=== PATIENT | male | born 1945 | race Caucasian/White ===

== ENCOUNTER 2023-12-16 23:34 | Inpatient (IN) | payer OTHER, SELFPAY ==
[2023-12-16 23:38] VITALS: BP 105/60; PULSE 108; RESP 18; TEMP 36.8; O2SAT 93; BMI 32.7
--- NOTE | 2023-12-16 23:40 | XRR_ITS ---
PROCEDURE INFORMATION: Exam: XR Left Hip Exam date and time: 12/17/2023 12:23 AM Age: 78 years old Clinical indication: Hip pain; Patient HX: Patient says he slipped on the ice and went down directly on left hip. Patient denies hitting head or losing conciousness in any way. Patient has refused CT of head and cxr. ; Additional info: Fall, fracture TECHNIQUE: Imaging protocol: Radiologic exam of the left hip. Views: 2 or 3 views hip with pelvis when performed. COMPARISON: No relevant prior studies available. FINDINGS: Bones/joints: Comminuted displaced and angulated intratrochanteric fracture of the left femur. Soft tissues: Unremarkable. XR/XR hip LT 2-3V wo/w pel* [id number] IMPRESSION: Comminuted displaced and angulated intratrochanteric fracture of the left femur.
--- NOTE | 2023-12-16 23:42 | ED_ITS ---
Documented by User: CATALINA Rawls 12/18/23 13:29 HPI - Extremity Injury (Lower) 2 General: Chief Complaint: ER Hold Stated Complaint: Fall; Left Hip Pain Time Seen by Provider: 12/16/23 23:38 History of Present Illness: 78-year-old male patient comes in today for complaints of fall with left hip injury. Patient about 1230 this afternoon walked out to the mailbox to get his mail when he slipped and fell injuring his left hip. Patient had 2 crawl back to his house due to not being able to bear weight to his left hip due to pain. Patient has external rotation of the hip and cannot lift knee off the pad. Patient does have sensation in the toes and strong pedal pulse. Patient denies injury to the head. Patient has a history of A-fib, hypertension, and diabetes mellitus type 2. Patient is on Xarelto. complaint: hip injury Onset (ago): hour(s) Injury: Left: hip Place: home Severity: severe Exacerbating factors: movement Context: fall Associated symptoms: Reports inability to bear weight Other symptoms: none Review of Systems 2 General: Reports: 10 or more systems reviewed and unremarkable except in HPI and below Const: Denies: fever(s) Card: Denies: chest pain Resp: Denies: dyspnea GI: Denies: nausea, vomiting, diarrhea or constipation : Denies: difficulty urinating Musc: Reports: joint pain (Left hip); Denies: neck pain or back pain Skin/Breast: Denies: rash Neuro: Denies: headache(s) PFS ED 2 PFSH: Medical History (Updated 12/17/23 @ 01:32 by Anibal Reynoso MD) History of hypertension Surgical History (Updated 12/17/23 @ 01:32 by Anibal Reynoso MD) History of appendectomy Family History (Updated 12/17/23 @ 01:33 by Anibal Reynoso MD) Mother Alzheimer's dementia Father Cancer Social History (Updated 12/17/23 @ 01:33 by Anibal Reynoso MD) Smoking and tobacco/nicotine status: never used tobacco/nicotine Alcohol intake: never Substance/Drug Use: never Physical Exam 2 Const: COMMON NORMALS: alert ORIENTATION/CONSCIOUSNESS: Yes oriented to person and Yes oriented to place HENMT: COMMON NORMALS: normocephalic and atraumatic HEAD & SCALP: n ormocephalic and atraumatic THROAT: posterior oropharynx normal Eye: GENERAL EYE: appearance normal, both eyes and all related structures Neck/C-Spine: COMMON NORMALS: full ROM CERVICAL SPINE: No Cervical spine tenderness and No Paracervical muscle tenderness Chest: COMMONS NORMALS: normal inspection of the chest and normal palpation of entire chest wall Resp: COMMON NORMALS: normal respiratory effort and clear to auscultation bilaterally AUSCULTATION: clear to auscultation bilaterally Cardio: COMMON NORMALS: regular rate and regular rhythm RATE: regular rate RHYTHM: regular rhythm GI: COMMON NORMALS: Soft to palpation AUSCULTATION: Yes normoactive bowel sounds PALPATION: Yes Soft to palpation and No Tenderness to palpation present (GI) Back/Pelvis: THORACIC SPINE/UPPER BACK: No thoracic spinal tenderness L UMBAR SPINE/LOWER BACK: No lumbar spinal tenderness Extremity: LEFT LOWER EXTREMITY: Yes hip joint (Lateral tenderness, external rotation.) Neuro: TOM COMA SCALE: document GCS findings [place] coma scale eye opening: Spontaneous Tom coma scale verbal response: Orientated Tom coma scale motor response: Obey commands [place] coma scale total score: 15 S ENSORIUM/ORIENTATION: Yes alert, Yes oriented to person and Yes oriented to place Psych: COMMON NORMALS: mental status grossly normal Skin: COMMON NORMALS: turgor normal GENERAL SKIN EXAM: turgor normal Course 2 Vital Signs: Vital signs: Vital Signs Temperature 98.5 F 12/18/23 11:15 Pulse Rate 106 H 12/18/23 11:15 Respiratory Rate 14 12/18/23 12:27 Blood Pressure 120/55 12/18/23 11:15 Pulse Oximetry 90 12/18/23 12:27 Oxygen Delivery Me thod Room Air 12/18/23 11:15 Oxygen Flow Rate 3 12/18/23 10:39 MDM - Extremity Injury (Lower) Medical Decision Making 78-year-old male patient comes in today for injury to the left hip. Patient slipped and fell this afternoon around 1230 and was not able to get up off the ground. Patient was able to crawl back to his house and was unable to bear any weight to the left hip. Patient then was able to get a hold of his son and EMS was called around 7:00 but had difficulty getting to patient's residence due to the bad road conditions. Exam noted external rotation of the left hip. Distal pulses and sensation were intact. Differential diagnosis includes dislocation, fracture, contusion, rhabdomyolysis. Lab Data 12/16/23 00:42 12/17/23 01:00 Radiology Impressions Hip/Pelvis X-Ray 12/16/23 23:40 IMPRESSION: Comminuted displaced and angulated intratrochanteric fracture of the left femur. Chest X-Ray 12/17/23 01:27 IMPRESSION: No focal consolidation. Laboratory Results WBC 8.22 10^3/uL (3.29-11.43) 12/16/23 00:42 RBC 4.35 10^6/uL (3.85-5.65) 12/16/23 00:42 Hgb 13.20 g/dL (11.27-16.99) 12/16/23 00:42 Hct 43.3 % (37-53) 12/16/23 00:42 MCV 99.5 fl (82-101) 12/16/23 00:42 MCH 30.3 pg (27-33) 12/16/23 00:42 MCHC 30.5 g/dL (30-55) 12/16/23 00:42 RDW 13.2 % (12.1-15.1) 12/16/23 00:42 Plt Count 152 10^3/cmm (157-399) L 12/16/23 00:42 MPV 11.6 fL (7.4-10.4) H 12/16/23 00:42 Neut % (Auto) 79.3 % 12/16/23 00:42 Lymph % (Auto) 8.6 % 12/16/23 00:42 Evangeline % (Auto) 11.6 % 12/16/23 00:42 Eos % (Auto) 0.0 % 12/16/23 00:42 Baso % (Auto) 0.1 % 12/16/23 00:42 Neut # (Auto) 6.52 10^3/uL (1.8-7.7) 12/16/23 00:42 Lymph # (Auto) 0.7 10^3/uL (0.8-4.8) L 12/16/23 00:42 Evangeline # (Auto) 1.0 10^3/uL (0.2-0.9) H 12/16/23 00:42 Eos # (Auto) 0.0 10^3/uL (0.0-0.8) 12/16/23 00:42 Baso # (Auto) 0.0 10^3/uL (0.0-0.1) 12/16/23 00:42 Nucleated RBC % (auto) 0 % 12/16/23 00:42 Nucleated RBCs # 0.0 /100WBC 12/16/23 00:42 PT 14.20 SECONDS (12.1-14.9) 12/17/23 01:00 INR 1.06 (0.8-1.2) 12/17/23 01:00 Sodium 135 mmol/L (136-145) L 12/17/23 01:00 Potassium 4.6 mmol/L (3.5-5.1) 12/17/23 01:00 Chloride 97 mmol/L (98-107) L 12/17/23 01:00 Carbon Dioxide 25 mmol/L (22-29) 12/17/23 01:00 Anion Gap 17.6 (5-19) 12/17/23 01:00 BUN 23 mg/dL (8-23) 12/17/23 01:00 Creatinine 1.0 mg/dL (0.7-1.2) 12/17/23 01:00 GFR Calculation Not Reportable 12/17/23 01:00 Glucose 333 mg/dL (65-115) H 12/17/23 01:00 POC Glucose 299 mg/dL (70-110) H 12/17/23 10:59 Estimat Average Glucose 272 12/17/23 02:46 Hemoglobin A1c 11.1 % (4.0-6.0) H 12/17/23 02:46 Calculated Osmolality 297 mOsm/kg (285-295) H 12/17/23 01:00 Lactic Acid 1.5 mmol/L (0.5-2.2) 12/17/23 02:46 Calcium 9.6 mg/dL (8.5-10.5) 12/17/23 01:00 Phosphorus 2.5 mg/dL (2.5-4.5) 12/17/23 01:00 Magnesium 1.9 mg/dL (1.7-2.3) 12/17/23 01:00 Total Bilirubin 1.9 mg/dL (0.15-1.2) H 12/17/23 01:00 AST 32 U/L (0-40) 12/17/23 01:00 ALT 19 U/L (0-41) 12/17/23 01:00 Alkaline Phosphatase 70 U/L (40-130) 12/17/23 01:00 Creatine Kinase 497 U/L (39-308) H* 12/17/23 01:00 Troponin T Baseline 55 ng/L (0-15) H 12/17/23 01:00 Troponin T 120 Minute 46.20 ng/L (0-15) H 12/17/23 02:46 Delta Troponin T -8.80 ABS# (0-10) L 12/17/23 02:46 Troponin T Hi Sens 6Hr 38.77 ng/L (0-15) H 12/17/23 07:00 Troponin T Hi Sens 6Hr Delta -16.23 ng/L (0-12) L 12/17/23 07:00 NT-Pro-B Natriuret Pep 1868 pg/mL (0-450) H 12/17/23 01:00 Total Protein 7.3 g/dL (6.6-8.7) 12/17/23 01:00 Albumin 4.0 g/dL (3.5-5.2) 12/17/23 01:00 Globulin 3.3 g/dL (1.3-4.6) 12/17/23 01:00 Triglycerides 96 mg/dL (0-150) 12/17/23 01:00 Cholesterol 183 mg/dL (0-200) 12/17/23 01:00 LDL Cholesterol, Calc 121 mg/dL (50-129) 12/17/23 01:00 HDL Cholesterol 43 mg/dL (60-100) L 12/17/23 01:00 LDL/HDL Ratio 2.81 RATIO (0.00-3.22) 12/17/23 01:00 Cholesterol/HDL Ratio 4.26 mg/dL (1.0-5.00) 12/17/23 01:00 Procalcitonin 0.34 ng/mL (0-0.5) 12/17/23 01:00 TSH 1.65 uIU/mL (0.27-4.20) 12/17/23 01:00 Urine Color Yellow (Yellow) 12/17/23 02:22 Urine Appearance Clear (CLEAR) 12/17/23 02:22 Urine pH 5 (5-7) 12/17/23 02:22 Ur Specific [place] 1.020 (1.005-1.030) 12/17/23 02:22 Urine Protein Neg (Negative) 12/17/23 02:22 Urine Glucose (UA) 4+ (Normal) H 12/17/23 02:22 Urine Ketones 2+ (Negative) H 12/17/23 02:22 Urine Blood 2+ (Negative) H 12/17/23 02:22 Urine Nitrate Negative (Negative) 12/17/23 02:22 Urine Bilirubin Neg (Negative) 12/17/23 02:22 Urine Urobilinogen Neg mg/dL (Negative) 12/17/23 02:22 Ur Leukocyte Esterase Negative (Negative) 12/17/23 02:22 Urine RBC 5-10 /hpf (0-2) H 12/17/23 02:22 Urine WBC None /hpf (0-5) 12/17/23 02:22 Ur Squamous Epith Cells None /hpf (0-5) 12/17/23 02:22 Amorphous Sediment Not Reportable 12/17/23 02:22 Urine Bacteria Trace /hpf (NONE) 12/17/23 02:22 Urine Mucus Trace /hpf 12/17/23 02:22 EKG Data EKG 1: I personally reviewed and interpreted this EKG as follows: EKG interpretation date: 12/17/23 EKG interpretation time: 00:01 Prior EKG tracings: not available for review Interpretation: EKG shows atrial fib with a irregular rate at [address] elevation or ectopy is noted. No prior exam was available for immediate comparison. Computer generated interpretation: Atrial fibrillation, pattern consistent with pulmonary disease, possible right ventricular conduction delay, inferior myocardial infarction of indeterminate age, abnormal EKG, unconfirmed report. Discharge Plan Discharge Patient Disposition: Admitted As Inpatient Admit Provider: Anibal Reynoso Clinical Impression: Anticoagulation adequate Closed fracture of left hip Qualifiers: Encounter type: initial encounter Qualified Code(s): S72.002A - Fracture of unspecified part of neck of left femur, initial encounter for closed fracture Fall Qualifiers: Encounter type: initial encounter Qualified Code(s): W19.XXXA - Unspecified fall, initial encounter Atrial fibrillation Qualifiers: Atrial fibrillation type: unspecified Qualified Code(s): I48.91 - Unspecified atrial fibrillation Diabetes Qualifiers: Diabetes mellitus type: type 2 Diabetes mellitus watermaster insulin use: without long-term use Diabetes mellitus complication status: without complication Q ualified Code(s): E11.9 - Type 2 diabetes mellitus without complications Condition: Stable Coding Level of Care Code ED Flanging Machine Operator for Chg Fwd Documented by User: Zeke Fritz DO 12/17/23 19:04 HPI - Extremity Injury (Lower) 2 General: Chief Complaint: ER Hold Stated Complaint: Fall; Left Hip Pain Time Seen by Provider: 12/16/23 23:38 [facility] ED 2 PFSH: Medical History (Updated 12/17/23 @ 01:32 by Anibal Reynoso MD) History of hypertension Surgical History (Updated 12/17/23 @ 01:32 by Anibal Reynoso MD) History of appendectomy Family History (Updated 12/17/23 @ 01:33 by Anibal Reynoso MD) Mother Alzheimer's dementia Father Cancer Social History (Updated 12/17/23 @ 01:33 by Anibal Reynoso MD) Smoking and tobacco/nicotine status: never used tobacco/nicotine Alcohol intake: never Substance/Drug Use: never Physical Exam 2 Neuro: TOM COMA SCALE: document GCS findings [place] coma scale total score: 15 Course 2 Vital Signs: Vital signs: Vital Signs Temperature 98.5 F 12/18/23 11:15 Pulse Rate 106 H 12/18/23 11:15 Respiratory Rate 14 12/18/23 12:27 Blood Pressure 120/55 12/18/23 11:15 Pulse Oximetry 90 12/18/23 12:27 Oxygen Delivery Me thod Room Air 12/18/23 11:15 Oxygen Flow Rate 3 12/18/23 10:39 MDM - Extremity Injury (Lower) Medical Decision Making 78-year-old male patient comes in today for injury to the left hip. Patient slipped and fell this afternoon around 1230 and was not able to get up off the ground. Patient was able to crawl back to his house and was unable to bear any weight to the left hip. Patient then was able to get a hold of his son and EMS was called around 7:00 but had difficulty getting to patient's residence due to the bad road conditions. Exam noted external rotation of the left hip. Distal pulses and sensation were intact. Differential diagnosis includes dislocation, fracture, contusion, rhabdomyolysis. Patient refused his chest x-ray and head CT and was adamant that he was not getting them because there were nothing wrong with those areas. Consulted who agreed to accept the patient in consult and wanted patient manage the hospitalist he will see them in the morning. Dr. Mendoza was consulted who agreed to place the patient on [facility] with telemetry for further evaluation and treatment. Lab Data 12/16/23 00:42 12/17/23 01:00 Radiology Impressions Hip/Pelvis X-Ray 12/16/23 23:40 IMPRESSION: Comminuted displaced and angulated intratrochanteric fracture of the left femur. Chest X-Ray 12/17/23 01:27 IMPRESSION: No focal consolidation. Laboratory Results WBC 8.22 10^3/uL (3.29-11.43) 12/16/23 00:42 RBC 4.35 10^6/uL (3.85-5.65) 12/16/23 00:42 Hgb 13.20 g/dL (11.27-16.99) 12/16/23 00:42 Hct 43.3 % (37-53) 12/16/23 00:42 MCV 99.5 fl (82-101) 12/16/23 00:42 MCH 30.3 pg (27-33) 12/16/23 00:42 MCHC 30.5 g/dL (30-55) 12/16/23 00:42 RDW 13.2 % (12.1-15.1) 12/16/23 00:42 Plt Count 152 10^3/cmm (157-399) L 12/16/23 00:42 MPV 11.6 fL (7.4-10.4) H 12/16/23 00:42 Neut % (Auto) 79.3 % 12/16/23 00:42 Lymph % (Auto) 8.6 % 12/16/23 00:42 Evangeline % (Auto) 11.6 % 12/16/23 00:42 Eos % (Auto) 0.0 % 12/16/23 00:42 Baso % (Auto) 0.1 % 12/16/23 00:42 Neut # (Auto) 6.52 10^3/uL (1.8-7.7) 12/16/23 00:42 Lymph # (Auto) 0.7 10^3/uL (0.8-4.8) L 12/16/23 00:42 Evangeline # (Auto) 1.0 10^3/uL (0.2-0.9) H 12/16/23 00:42 Eos # (Auto) 0.0 10^3/uL (0.0-0.8) 12/16/23 00:42 Baso # (Auto) 0.0 10^3/uL (0.0-0.1) 12/16/23 00:42 Nucleated RBC % (auto) 0 % 12/16/23 00:42 Nucleated RBCs # 0.0 /100WBC 12/16/23 00:42 PT 14.20 SECONDS (12.1-14.9) 12/17/23 01:00 INR 1.06 (0.8-1.2) 12/17/23 01:00 Sodium 135 mmol/L (136-145) L 12/17/23 01:00 Potassium 4.6 mmol/L (3.5-5.1) 12/17/23 01:00 Chloride 97 mmol/L (98-107) L 12/17/23 01:00 Carbon Dioxide 25 mmol/L (22-29) 12/17/23 01:00 Anion Gap 17.6 (5-19) 12/17/23 01:00 BUN 23 mg/dL (8-23) 12/17/23 01:00 Creatinine 1.0 mg/dL (0.7-1.2) 12/17/23 01:00 GFR Calculation Not Reportable 12/17/23 01:00 Glucose 333 mg/dL (65-115) H 12/17/23 01:00 POC Glucose 299 mg/dL (70-110) H 12/17/23 10:59 Estimat Average Glucose 272 12/17/23 02:46 Hemoglobin A1c 11.1 % (4.0-6.0) H 12/17/23 02:46 Calculated Osmolality 297 mOsm/kg (285-295) H 12/17/23 01:00 Lactic Acid 1.5 mmol/L (0.5-2.2) 12/17/23 02:46 Calcium 9.6 mg/dL (8.5-10.5) 12/17/23 01:00 Phosphorus 2.5 mg/dL (2.5-4.5) 12/17/23 01:00 Magnesium 1.9 mg/dL (1.7-2.3) 12/17/23 01:00 Total Bilirubin 1.9 mg/dL (0.15-1.2) H 12/17/23 01:00 AST 32 U/L (0-40) 12/17/23 01:00 ALT 19 U/L (0-41) 12/17/23 01:00 Alkaline Phosphatase 70 U/L (40-130) 12/17/23 01:00 Creatine Kinase 497 U/L (39-308) H* 12/17/23 01:00 Troponin T Baseline 55 ng/L (0-15) H 12/17/23 01:00 Troponin T 120 Minute 46.20 ng/L (0-15) H 12/17/23 02:46 Delta Troponin T -8.80 ABS# (0-10) L 12/17/23 02:46 Troponin T Hi Sens 6Hr 38.77 ng/L (0-15) H 12/17/23 07:00 Troponin T Hi Sens 6Hr Delta -16.23 ng/L (0-12) L 12/17/23 07:00 NT-Pro-B Natriuret Pep 1868 pg/mL (0-450) H 12/17/23 01:00 Total Protein 7.3 g/dL (6.6-8.7) 12/17/23 01:00 Albumin 4.0 g/dL (3.5-5.2) 12/17/23 01:00 Globulin 3.3 g/dL (1.3-4.6) 12/17/23 01:00 Triglycerides 96 mg/dL (0-150) 12/17/23 01:00 Cholesterol 183 mg/dL (0-200) 12/17/23 01:00 LDL Cholesterol, Calc 121 mg/dL (50-129) 12/17/23 01:00 HDL Cholesterol 43 mg/dL (60-100) L 12/17/23 01:00 LDL/HDL Ratio 2.81 RATIO (0.00-3.22) 12/17/23 01:00 Cholesterol/HDL Ratio 4.26 mg/dL (1.0-5.00) 12/17/23 01:00 Procalcitonin 0.34 ng/mL (0-0.5) 12/17/23 01:00 TSH 1.65 uIU/mL (0.27-4.20) 12/17/23 01:00 Urine Color Yellow (Yellow) 12/17/23 02:22 Urine Appearance Clear (CLEAR) 12/17/23 02:22 Urine pH 5 (5-7) 12/17/23 02:22 Ur Specific [place] 1.020 (1.005-1.030) 12/17/23 02:22 Urine Protein Neg (Negative) 12/17/23 02:22 Urine Glucose (UA) 4+ (Normal) H 12/17/23 02:22 Urine Ketones 2+ (Negative) H 12/17/23 02:22 Urine Blood 2+ (Negative) H 12/17/23 02:22 Urine Nitrate Negative (Negative) 12/17/23 02:22 Urine Bilirubin Neg (Negative) 12/17/23 02:22 Urine Urobilinogen Neg mg/dL (Negative) 12/17/23 02:22 Ur Leukocyte Esterase Negative (Negative) 12/17/23 02:22 Urine RBC 5-10 /hpf (0-2) H 12/17/23 02:22 Urine WBC None /hpf (0-5) 12/17/23 02:22 Ur Squamous Epith Cells None /hpf (0-5) 12/17/23 02:22 Amorphous Sediment Not Reportable 12/17/23 02:22 Urine Bacteria Trace /hpf (NONE) 12/17/23 02:22 Urine Mucus Trace /hpf 12/17/23 02:22 All radiology interpretation(s) finalized by discharge Discharge Plan Discharge Patient Disposition: Admitted As Inpatient Admit Provider: Anibal Reynoso Clinical Impression: Anticoagulation adequate Closed fracture of left hip Qualifiers: Encounter type: initial encounter Qualified Code(s): S72.002A - Fracture of unspecified part of neck of left femur, initial encounter for closed fracture Fall Qualifiers: Encounter type: initial encounter Qualified Code(s): W19.XXXA - Unspecified fall, initial encounter Atrial fibrillation Qualifiers: Atrial fibrillation type: unspecified Qualified Code(s): I48.91 - Unspecified atrial fibrillation Diabetes Qualifiers: Diabetes mellitus type: type 2 Diabetes mellitus long-term insulin use: without long-term use Diabetes mellitus complication status: without complication Q ualified Code(s): E11.9 - Type 2 diabetes mellitus without complications Condition: Stable Coding Level of Care Code ED Flanging Machine Operator for Doretha Huggins
--- NOTE | 2023-12-16 23:52 | ECG_ITS ---
[facility] Test Date: 2023-12-16 Pat Name: Carl Shore Department: Room: Gender: Male Procurement Engineer: : 1945 Requested By: Delta Moon Order Number: [id number] Jeannie MD: Darlene Grubbs M.D. Measurements Intervals [place] Rate: 99 P: 0 VT: 0 QRS: -46 QRSD: 89 T: -22 QT: 332 QTc: 427 Interpretive Statements ATRIAL FIBRILLATION PATTERN CONSISTENT WITH PULMONARY DISEASE POSSIBLE RIGHT VENTRICULAR CONDUCTION DELAY [RSR (QR) IN V1/V2] INFERIOR MYOCARDIAL INFARCTION , OF INDETERMINATE AGE [40+ ms Q WAVE AND/OR ST/T ABNORMALITY IN II/aVF] No previous ECG available for comparison Electronically Signed On 12-17-2023 19:47:49 REGIONAL CONSTRUCTION MANAGER by Darlene Grubbs M.D. [id number] f
[2023-12-17] VITALS (46 sets, daily range): BP systolic 94–143; BP diastolic 49–81; PULSE 90–118; RESP 13–32; TEMP 36.6–37.4; O2SAT 88–97
[2023-12-17 00:47] LABS: Basophils % 0.1 %; Hematocrit 43.3 % (37-53); Lymphocytes # 0.7 10^3/uL (0.8-4.8); Lymphocytes % 8.6 %; Mean Corpuscular HGB Conc 30.5 g/dL (30-55); Mean Corpuscular Hemoglobin 30.3 pg (27-33); Mean Corpuscular Volume 99.5 fl (82-101); Mean Platelet Volume 11.6 fL (7.4-10.4); Monocytes % 11.6 %; Neutrophils # 6.52 10^3/uL (1.8-7.7); Neutrophils % 79.3 %; Nucleated Red Blood Cells % 0 %; Platelet Count 152 10^3/cmm (157-399); Red Blood Count 4.35 10^6/uL (3.85-5.65); Red Cell Distribution Width 13.2 % (12.1-15.1); White Blood Count 8.22 10^3/uL (3.29-11.43)
[2023-12-17 01:15] LABS: INR 1.06 (0.8-1.2)
[2023-12-17 01:20] LABS: Alanine Aminotransferase 19 U/L (0-41); Alkaline Phosphatase 70 U/L (40-130); Anion Gap 17.6 (5-19); Aspartate Amino Transferase 32 U/L (0-40); Blood Urea Nitrogen 23 mg/dL (8-23); Calcium 9.6 mg/dL (8.5-10.5); Carbon Dioxide 25 mmol/L (22-29); Chloride 97 mmol/L (98-107); Globulin 3.3 g/dL (1.3-4.6); Glucose 333 mg/dL (65-115); Osmolality Calculated 297 mOsm/kg (285-295); Potassium 4.6 mmol/L (3.5-5.1); Sodium 135 mmol/L (136-145); Total Bilirubin 1.9 mg/dL (0.15-1.2); Total Protein 7.3 g/dL (6.6-8.7)
--- NOTE | 2023-12-17 01:27 | XRR_ITS ---
PROCEDURE INFORMATION: Exam: XR Chest Exam date and time: 12/17/2023 1:53 AM Age: 78 years old Clinical indication: Injury or trauma; Fall; Blunt trauma (contusions or hematomas); Patient HX: Slipped on ice, hip FX TECHNIQUE: Imaging protocol: Radiologic exam of the chest. Views: 1 view. COMPARISON: No relevant prior studies available. FINDINGS: Lungs: No focal consolidation. Pleural spaces: Unremarkable. No pleural effusion. No pneumothorax. Heart/Mediastinum: Unremarkable. No cardiomegaly. Bones/joints: Prior median sternotomy and CABG. XR/XR chest 1V portable [id number] IMPRESSION: No focal consolidation.
--- NOTE | 2023-12-17 01:27 | ECG_ITS ---
[facility] Test Date: 2023-12-17 Pat Name: Carl Shore Department: Room: Gender: Male Advisor To Command In Combat: : 1945 Requested By: Anibal Reynoso Order Number: [id number] Jeannie MD: Darlene Grubbs M.D. Measurements Intervals [place] Rate: 98 P: 0 OK: 0 QRS: -50 QRSD: 93 T: -31 QT: 336 QTc: 430 Interpretive Statements ATRIAL FIBRILLATION WITH ABERRANT CONDUCTION OR VENTRICULAR PREMATURE COMPLEXES PATTERN CONSISTENT WITH PULMONARY DISEASE INCOMPLETE RIGHT BUNDLE BRANCH BLOCK [90+ ms QRS DURATION, TERMINAL R IN V1/V2, 40+ ms S IN I/aVL/V4/V5/V6] INFERIOR MYOCARDIAL INFARCTION , OF INDETERMINATE AGE [40+ ms Q WAVE AND/OR ST/T ABNORMALITY IN II/aVF] Compared to ECG 12/16/2023 23:52:09 Ventricular premature complex(es) now present Aberrant conduction of supraventricular beat(s) now present Incomplete right bundle-branch block now present Myocardial infarct finding still present Electronically Signed On 12-17-2023 19:49:09 TRACER POWDER BLENDER by Darlene Grubbs M.D. [id number]
--- NOTE | 2023-12-17 01:30 | PM.HP ---
Providers/Chief Complaint Primary Care Provider: Tamar Jeff MD Chief Complaint: Fall; Left Hip Pain History of Present Illness Carl Shore is a 78 year old male with a past medical history of COPD, on Xarelto type 2 diabetes mellitus, hypertension, who presents to [facility] for a fall, patient tells me that this morning, he was going out to set the garbage out, when he slipped and fell on the last step, and fell on his left hip, no significant head trauma, no neck trauma no loss of consciousness, he immediately had left hip pain, he was able to crawl back in the home, and crawled back to the side of the bed, he was on the floor for about 7 hours, he called his son, who rushed to his home but unfortunately got stuck in a ditch, eventually patient was able to call ambulance who came out to his home, in the emergency room he is found to have a left hip fracture, he declined CT of the head, no headache, no blurry vision, no nausea, vomiting, no back pain, no neck pain, no knee pain, no leg pain, no foot pain or any further imaging as he tells us the only thing that is hurting him is his left hip, he does confirm that he took Xarelto this morning Review of Systems Card: Denies: chest pain Resp: Denies: dyspnea Neuro: Denies: headache(s) Medications/Allergies Allergies Allergy/AdvReac Type Severity Reaction Status Date / Time No Known Allergies Allergy Verified 12/16/23 23:42 PFSH Acute PFSH: Medical History (Updated 12/17/23 @ 01:32 by Anibal Reynoso MD) History of hypertension Surgical History (Updated 12/17/23 @ 01:32 by Anibal Reynoso MD) History of appendectomy Family History (Updated 12/17/23 @ 01:33 by Anibal Reynoso MD) Mother Alzheimer's dementia Father Cancer Social History (Updated 12/17/23 @ 01:33 by Anibal Reynoso MD) Smoking and tobacco/nicotine status: never used tobacco/nicotine Alcohol intake: never Substance/Drug Use: never Vitals/I&O/Wt Last Vital Signs Temp 98.2 F 12/16/23 23:38 Pulse 118 H 12/17/23 01:24 Resp 17 12/17/23 01:24 BP 105/68 12/17/23 01:24 Pulse Ox 91 12/17/23 01:24 O2 Del Method Room Air 12/17/23 01:24 Weight last 48 hrs Weight 103.419 kg Physical Exam Const: COMMON NORMALS: no acute distress and patient oriented x3 HENMT: COMMON NORMALS: normocephalic HEAD & SCALP: normocephalic Eye: COMMON NORMALS: Equal, round and reactive pupils present and EOMs intact bilaterally Neck/C-Spine: COMMON NORMALS: no JVD CERVICAL SPINE: No Cervical spine tenderness Lymph: LYMPHATIC: no lymphadenopathy noted Resp: COMMON NORMALS: normal respiratory effort, No retractions, No use of accessory muscles and clear to auscultation bilaterally AUSCULTATION: clear to auscultation bilaterally Cardio: COMMON NORMALS: no JVD, regular rate, regular rhythm, S1 normal heart sound present and S2 normal heart sound present RATE: tachycardic RHYTHM: abnormal rhythm irregularly irregular HEART SOUNDS: S1 normal heart sound present and S2 normal heart sound present GI: COMMON NORMALS: Normal to inspection, nondistended, normoactive bowel sounds present, Soft to palpation and non-tender PALPATION: Yes No hepatosplenomegaly present Extremity: COMMON NORMALS: no calf tenderness and no pedal edema Neuro: COMMON NORMALS: patient oriented x3, CN's II-XII intact bilaterally and moves all extremities Psych: COMMON NORMALS: mental status grossly normal Data 12/16/23 00:42 12/17/23 01:00 A&P Assessment and plan (1) Atrial fibrillation: Qualifiers: Atrial fibrillation type: unspecified Qualified Code(s): I48.91 - Unspecified atrial fibrillation (2) Diabetes: Qualifiers: Diabetes mellitus complication status: without complication Diabetes mellitus long term care social worker insulin use: without snf use Diabetes mellitus type: type 2 Qualified Code(s): E11.9 - Type 2 diabetes mellitus without complications (3) Closed fracture of left hip: Qualifiers: Encounter type: initial encounter Qualified Code(s): S72.002A - Fracture of unspecified part of neck of left femur, initial encounter for closed fracture Plan Fall, left hip fracture -N.p.o. -Dilaudid for pain control -Zofran for nausea -Dr. Cochran has been consulted from ER -Patient's last dose of Xarelto was the morning of 12/16/2023 -Full code -SCDs for DVT prophylaxis Atrial fibrillation -Currently heart rates 110, atrial fibrillation -Patient is not sure what medications he takes at home -Will consider drip such as Cardizem based on clinical progress -Holding anticoagulation Type II diet mellitus, low-dose sliding scale Attestations Medical Necessity Statement*: Patient requires hospitalization, inpatient, greater than 2 midnights for fall, left hip fracture Diagnoses Atrial fibrillation I48.91 Atrial fibrillation type: unspecified Diabetes E11.9 Diabetes mellitus complication status: without complication Diabetes mellitus snf insulin use: without long term care social worker use Diabetes mellitus type: type 2 Closed fracture of left hip S72.002A Encounter type: initial encounter
[2023-12-17 01:40] LABS: Creatine Phosphokinase 497 U/L (39-308)
[2023-12-17 01:52] LABS: Troponin(5th) Baseline 55 ng/L (0-15)
[2023-12-17 01:59] LABS: NT Pro B Type Natriuretic Pept 1868 pg/mL (0-450); Procalcitonin 0.34 ng/mL (0-0.5); Thyroid Stimulating Hormone 1.65 uIU/mL (0.27-4.20)
[2023-12-17] MEDS: HYDROmorphone 1 mg/mL INJ 1 mL 0.5 MG IVP ×3 (02:02→18:29)
[2023-12-17] MEDS: pantoprazole 40 mg SDV IVP (02:03)
[2023-12-17] MEDS: sodium chloride 0.9% 1,000 ML 75 ML IV ×2 (02:03→13:18)
[2023-12-17 02:10] LABS: Chol HDL Ratio 4.26 mg/dL (1.0-5.00); Cholesterol 183 mg/dL (0-200); HDL Cholesterol 43 mg/dL (60-100); LDL Cholesterol Calculated 121 mg/dL (50-129); LDL HDL Ratio 2.81 RATIO (0.00-3.22); Magnesium 1.9 mg/dL (1.7-2.3); Phosphorus 2.5 mg/dL (2.5-4.5); Triglycerides 96 mg/dL (0-150)
[2023-12-17 02:33] LABS: Blood Urine 2+ (Negative); Glucose Urine UA 4+ (Normal); Ketones Urine 2+ (Negative); Protein Urine Neg (Negative); Urine Appearance Clear (CLEAR); Urine Color Yellow (Yellow); pH Urine 5 (5-7)
[2023-12-17 02:34] LABS: Add Urine Culture? No; Add Urine Microscopic? YES; Bacteria Urine TRACE /hpf; Bilirubin Urine Neg (Negative); Leukocyte Esterase Urine Negative (Negative); Mucus Urine TRACE /hpf; Nitrate Urine Negative (Negative); Urobilinogen Urine Neg (Negative)
[2023-12-17 03:02] LABS: Estmated Average Glucose 272; Hemoglobin A1C 11.1 % (4.0-6.0)
[2023-12-17 03:10] LABS: Lactic Sepsis W/Reflex 1.5 mmol/L (0.5-2.2)
--- NOTE | 2023-12-17 03:27 | ECG_ITS ---
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 Measurements Intervals [place] Rate: 95 P: 0 MD: 0 QRS: -44 QRSD: 85 T: -44 QT: 339 QTc: 426 Interpretive Statements ATRIAL FIBRILLATION PATTERN CONSISTENT WITH PULMONARY DISEASE POSSIBLE RIGHT VENTRICULAR CONDUCTION DELAY [RSR (QR) IN V1/V2] INFERIOR MYOCARDIAL INFARCTION , OF INDETERMINATE AGE [40+ ms Q WAVE AND/OR ST/T ABNORMALITY IN II/aVF] Compared to ECG 12/17/2023 01:42:18 Ventricular premature complex(es) no longer present Aberrant conduction of supraventricular beat(s) no longer present Incomplete right bundle-branch block no longer present Myocardial infarct finding still present Electronically Signed On 12-17-2023 20:12:03 [employer] DIRECT[employer] by Darlene Grubbs M.D. [id number]
[2023-12-17 03:55] LABS: Glucose Point of Care 315 mg/dL (70-110)
--- NOTE | 2023-12-17 07:27 | ECG_ITS ---
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 Measurements Intervals [place] Rate: 106 P: 0 [place]: 0 QRS: -48 QRSD: 96 T: -14 QT: 354 QTc: 471 Interpretive Statements ATRIAL FIBRILLATION WITH RAPID VENTRICULAR RESPONSE PATTERN CONSISTENT WITH PULMONARY DISEASE INCOMPLETE RIGHT BUNDLE BRANCH BLOCK [90+ ms QRS DURATION, TERMINAL R IN V1/V2, 40+ ms S IN I/aVL/V4/V5/V6] LEFT ANTERIOR FASCICULAR BLOCK [QRS AXIS <= -45, QR IN I, RS IN II] INFERIOR MYOCARDIAL INFARCTION , OF INDETERMINATE AGE [40+ ms Q WAVE AND/OR ST/T ABNORMALITY IN II/aVF] Compared to ECG 12/17/2023 03:49:57 Incomplete right bundle-branch block now present Left anterior fascicular block now present Myocardial infarct finding still present Electronically Signed On 12-17-2023 20:14:07 [employer] by Darlene Grubbs M.D. [id number]
--- NOTE | 2023-12-17 07:29 | PC.PHAR ---
PT IS VA AND NORMALLY HAS HIS BOTTLES. 12/17/23
[2023-12-17 07:32] LABS: Troponin 5 6HR 38.77 ng/L (0-15)
[2023-12-17 11:02] LABS: Glucose Point of Care 299 mg/dL (70-110)
--- NOTE | 2023-12-17 12:58 | P.CONIM_ITS ---
Providers/Reason For Consult 2 Consulting Physician/Specialty*: Hospitalist Reason for Consult*: Left intertrochanteric hip fracture Attending Physician: Anibal Reynoso MD Primary Care Provider: Tamar Jeff MD History of Present Illness History of Present Illness Carl Shore is a 78 year old male patient fell and sustained a left intertrochanteric hip fracture. Review of Systems 2 Card: Denies: chest pain Resp: Denies: dyspnea Neuro: Denies: headache(s) Medications/Allergies Home Medications Medication Instructions Recorded Confirmed Last Taken Type atorvastatin 40 mg tablet See Rx Instructions .Route .COMPLEX 12/17/23 12/17/23 12/16/23 History furosemide 20 mg tablet 20 mg PO QAM 12/17/23 12/17/23 12/16/23 History glipizide 10 mg tablet 10 mg PO BID 12/17/23 12/17/23 12/16/23 History lisinopril 20 mg tablet 10 mg PO DAILY 12/17/23 12/17/23 12/16/23 History metoprolol succinate 200 mg 100 mg PO DAILY 12/17/23 12/17/23 12/16/23 History tablet,extended release 24 hr omega 2-kvk-cba-fish oil 300 1 cap PO BID 12/17/23 12/17/23 12/16/23 History mg-1,000 mg capsule (Fish Oil) pioglitazone 45 mg tablet 45 mg PO DAILY 12/17/23 12/17/23 12/16/23 History rivaroxaban 20 mg tablet (Xarelto) 20 mg PO QPM 12/17/23 12/17/23 12/16/23 History Allergies Allergy/AdvReac Type Severity Reaction Status Date / Time No Known Allergies Allergy Verified 12/16/23 23:42 Current Medications Generic Name Dose Route Start Last Admin Trade Name Freq PRN Reason Stop Dose Admin Hydromorphone HCl 0.5 mg 12/17/23 01:27 12/17/23 07:17 Hydromorphone 1 Mg/Ml Inj 1 Ml IVP 0.5 mg Q4H PRN Administration pain Sodium Chloride 1,000 mls @ 75 mls/hr 12/17/23 01:30 12/17/23 02:03 Sodium Chloride 0.9% IV 75 mls/hr .[id number] LISETH Administration Insulin Human Lispro 0 unit 12/17/23 08:00 12/17/23 11:18 Insulin Lispro 100 Unit/1 Ml SUBCUT Not Given TIDWM LISETH Protocol Pantoprazole Sodium 40 mg 12/17/23 01:30 12/17/23 02:03 Pantoprazole 40 Mg Sdv IVP 40 mg Q24H LISETH Administration PFSH Acute 2 PFSH: Medical History (Updated 12/17/23 @ 01:32 by Anibal Reynoso MD) History of hypertension Surgical History (Updated 12/17/23 @ 01:32 by Anibal Reynoso MD) History of appendectomy Family History (Updated 12/17/23 @ 01:33 by Anibal Reynoso MD) Mother Alzheimer's dementia Father Cancer Social History (Updated 12/17/23 @ 01:33 by Anibal Reynoso MD) Smoking and tobacco/nicotine status: never used tobacco/nicotine Alcohol intake: never Substance/Drug Use: never Vitals/I&O/Wt Last Vital Signs Temp 98.2 F 12/16/23 23:38 Pulse 96 12/17/23 10:20 Resp 21 H 12/17/23 10:20 BP 95/49 12/17/23 11:41 Pulse Ox 90 12/17/23 10:20 O2 Del Method Nasal Cannula 12/17/23 09:12 O2 Flow Rate 2 12/17/23 09:12 Weight last 48 hrs Weight 228 lb Physical Exam 2 Narrative: Leg is externally rotated and shortened. Neurovascular intact Urinary Catheter Management: Min: Cath Placed During This Visit: yes Reason for Continuing Indwelling Catheter: Required Immobilization for Trauma or Surgery or Anesthesia Urinary Catheter Date of Insertion: 12/17/23 Urinary Catheter Time of Insertion: 02:21 Data 12/16/23 00:42 12/17/23 01:00 A&P Assessment and plan (1) Closed fracture of left hip: Patient has a left intertrochanteric hip fracture plan will be to do a intramedullary nail in the morning. I had an open and honest discussion with the patient about the risks, benefits and alternatives to both surgical and nonsurgical treatment. The patient verbalized understanding of the inherent unpredictability associated with surgery. Risk of surgery were discussed including, but not limited to, infection, bleeding, temporary and permanent nerve damage, continued pain, stiffness, incomplete healing, need for revision surgery, blood clot and other complications. The patient verbalized understanding that there is spine is elective in nature and if they find any of these risks to be unacceptable then they should choose not to have the surgery. The patient verbalized understanding of these risks and elected to proceed with the surgery. Qualifiers: Encounter type: initial encounter Qualified Code(s): S72.002A - Fracture of unspecified part of neck of left femur, initial encounter for closed fracture Coding Level of Care Code Acute Code for [facility] Fwd Diagnoses Closed fracture of left hip S72.002A Encounter type: initial encounter
[2023-12-17] MEDS: oxyCODONE 5 mg IR Tab/Cap PO (15:50)
[2023-12-17 16:47] LABS: Glucose Point of Care 321 mg/dL (70-110)
[2023-12-17] MEDS: insulin lispro 100 unit/1 mL SUBCUT (16:59)
[2023-12-17 21:13] LABS: Glucose Point of Care 251 mg/dL (70-110)
[2023-12-18] VITALS (23 sets, daily range): BP systolic 97–156; BP diastolic 55–110; PULSE 86–132; RESP 9–20; TEMP 36.8–37.9; O2SAT 89–99
[2023-12-18] MEDS: pantoprazole 40 mg SDV IVP (01:32)
[2023-12-18] MEDS: sodium chloride 0.9% 1,000 ML 75 ML IV (01:33)
[2023-12-18] MEDS: oxyCODONE 5 mg IR Tab/Cap PO (01:36)
[2023-12-18 07:12] LABS: Glucose Point of Care 214 mg/dL (70-110)
[2023-12-18 07:54] LABS: Glucose Point of Care 239 mg/dL (70-110)
[2023-12-18] MEDS: sodium chloride 0.9% 1,000 ML 30 ML IV (07:57)
[2023-12-18] MEDS: fentaNYL 50 mcg/mL INJ 2mL IVP (08:19)
[2023-12-18] MEDS: ceFAZolin 2,000 MG in sodium chloride 0.9% (plus) 50 ML 100 MG IV ×2 (08:57→17:37)
--- NOTE | 2023-12-18 10:13 | P.OP_ITS ---
Operative Report Date of procedure: December 18, 2023 Pre-op diagnosis: Intertrochanteric hip fracture. Subtrochanteric extension on the left Post-op diagnosis: same Procedure done: Left long hip nail Surgeon: Jaylen Cochran DO Estimated blood loss (mL): 25 Procedure: Left long hip nail Patient brought the operative suite after going anesthesia was placed on the [place] table in supine position all areas impingement well-padded.. Patient's prepped draped also fashion. Skin incision made over the tip the greater trochanter. Opening reamer was inserted the fracture was reduced point traction and rotation. The opening reamer was inserted followed by the ball-tipped guide. The nail was measured to be 3 and 80 mm. The canal was reamed to 13. A size 11 long gamma nail was inserted. Next tension was brought to performing the lag screw. The wire was placed in the center center position of the femoral head. The wire was measured to be 125 along the screw that [place] has 115. We used 115 and compressed to 10. Next tension this was then locked into position. Next tension was brought distally to the distal locking screws. 2 screws were placed distally size 45 and size 50. AP lateral fluoroscopy ensured the fracture and hardware in good position. Wounds were irrigated closed with Vicryl and latia. Sterile dressings applied patient transferred to PACU in stable condition.
--- NOTE | 2023-12-18 10:21 | ANES.PREANE2 ---
Pre-Anesthetic Assessment Height/Weight: Height 1.78 m Weight 104.598 kg Temp Pulse Resp BP Pulse Ox O2 Del Method O2 Flow Rate 100.2 F H 109 H 16 128/62 98 Nasal Cannula 2 12/18/23 07:46 12/18/23 07:46 12/18/23 08:19 12/18/23 07:46 12/18/23 08:19 12/18/23 07:46 12/18/23 07:46 Operation Date: 12/18/23 08:25 Proposed Procedures p Trochanteric Femoral Nail(Left) - Jaylen Cochran, Familial anesthetic complications: none Was Beta Marisol taken within 24 hours: Yes Was Clonidine taken within 24 hours: N/A Last intake: Intake Last Liquid Date 12/17/23 Last Solid Date 12/17/23 Social No alcohol and No tobacco Exam alert, oriented x 3, clear to auscultation bilaterally and regular rate & rhythm Airway Submandibular: within normal limits Cervical ROM: within normal limits Mallampati: Class II Dentition: false (upper) CV/HEM Atrial Fibrillation and Hypertension Metabolic Diabetes Mellitus, Hyperlipidemia and Morbid Obesity Anesthetic Plan ASA status: 3 Anesthesia: General Medications/Allergies Home Medications Medication Instructions Recorded Confirmed Last Taken Type atorvastatin 40 mg tablet See Rx Instructions .Route .COMPLEX 12/17/23 12/17/23 12/16/23 History furosemide 20 mg tablet 20 mg PO QAM 12/17/23 12/17/23 12/16/23 History glipizide 10 mg tablet 10 mg PO BID 12/17/23 12/17/23 12/16/23 History lisinopril 20 mg tablet 10 mg PO DAILY 12/17/23 12/17/23 12/16/23 History metoprolol succinate 200 mg 100 mg PO DAILY 12/17/23 12/17/23 12/16/23 History tablet,extended release 24 hr omega 0-bvg-dmc-fish oil 300 1 cap PO BID 12/17/23 12/17/23 12/16/23 History mg-1,000 mg capsule (Fish Oil) pioglitazone 45 mg tablet 45 mg PO DAILY 12/17/23 12/17/23 12/16/23 History rivaroxaban 20 mg tablet (Xarelto) 20 mg PO QPM 12/17/23 12/17/23 12/16/23 History Allergies Allergy/AdvReac Type Severity Reaction Status Date / Time No Known Allergies Allergy Verified 12/16/23 23:42 Current Medications Generic Name Dose Route Start Last Admin Trade Name Freq PRN Reason Stop Dose Admin Fentanyl 50 mcg 12/18/23 07:40 12/18/23 08:19 Fentanyl 50 Mcg/Ml Inj 2ml IVP 50 mcg Q10M PRN Administration Preop Pain Hydromorphone HCl 0.5 mg 12/17/23 01:27 12/17/23 18:29 Hydromorphone 1 Mg/Ml Inj 1 Ml IVP 0.5 mg Q4H PRN Administration pain Sodium Chloride 1,000 mls @ 75 mls/hr 12/17/23 01:30 12/18/23 01:33 Sodium Chloride 0.9% IV 75 mls/hr .[id number] LISETH Administration Sodium Chloride 1,000 mls @ 30 mls/hr 12/18/23 07:45 12/18/23 07:57 Sodium Chloride 0.9% IV 12/19/23 07:44 30 mls/hr .Q24H LISETH Administration Insulin Human Lispro 0 unit 12/17/23 08:00 12/17/23 16:59 Insulin Lispro 100 Unit/1 Ml SUBCUT 10 unit TIDWM LISETH Administration Protocol Oxycodone HCl 5 mg 12/17/23 15:35 12/18/23 01:36 Oxycodone 5 Mg Ir Tab/Cap PO 5 mg Q4H PRN Administration MODERATE PAIN Pantoprazole Sodium 40 mg 12/17/23 01:30 12/18/23 01:32 Pantoprazole 40 Mg Sdv IVP 40 mg Q24H LISETH Administration PFSH Anesthesia Medical History (Updated 12/17/23 @ 01:32 by Anibal Reynoso MD) History of hypertension Surgical History (Updated 12/17/23 @ 01:32 by Anibal Reynoso MD) History of appendectomy Family History (Updated 12/17/23 @ 01:33 by Anibal Reynoso MD) Mother Alzheimer's dementia Father Cancer Social History (Updated 12/17/23 @ 01:33 by Anibal Reynoso MD) Smoking and tobacco/nicotine status: never used tobacco/nicotine Alcohol intake: never Substance/Drug Use: never Data Anesthesia 12/16/23 00:42 12/17/23 01:00 Short CBC 12/16/23 Range/Units 00:42 WBC 8.22 (3.29-11.43) 10^3/uL Hgb 13.20 (11.27-16.99) g/dL Hct 43.3 (37-53) % MCV 99.5 (82-101) fl Plt Count 152 L (157-399) 10^3/cmm Neut % (Auto) 79.3 % Neut # (Auto) 6.52 (1.8-7.7) 10^3/uL BMP 12/16/23 12/17/23 00:42 01:00 Sodium Cancelled 135 L Potassium Cancelled 4.6 Chloride Cancelled 97 L Carbon Dioxide Cancelled 25 BUN Cancelled 23 Creatinine Cancelled 1.0 Glucose Cancelled 333 H Calcium Cancelled 9.6 Cardiac Enzymes 12/16/23 12/17/23 12/17/23 Range/Units 00:42 01:00 02:46 Creatine Kinase Cancelled 497 H* Troponin T Baseline 55 H (0-15) ng/L Troponin T 120 Minute 46.20 H (0-15) ng/L Delta Troponin T -8.80 L (0-10) ABS# Troponin T Hi Sens 6Hr (0-15) ng/L Troponin T Hi Sens 6Hr Delta (0-12) ng/L NT-Pro-B Natriuret Pep 1868 H (0-450) pg/mL 12/17/23 Range/Units 07:00 Creatine Kinase Troponin T Baseline (0-15) ng/L Troponin T 120 Minute (0-15) ng/L Delta Troponin T (0-10) ABS# Troponin T Hi Sens 6Hr 38.77 H (0-15) ng/L Troponin T Hi Sens 6Hr Delta -16.23 L (0-12) ng/L NT-Pro-B Natriuret Pep (0-450) pg/mL Liver Function 12/16/23 12/17/23 Range/Units 00:42 01:00 Total Bilirubin Cancelled 1.9 H AST Cancelled 32 ALT Cancelled 19 Alkaline Phosphatase Cancelled 70 Albumin Cancelled 4.0 Urine 12/17/23 Range/Units 02:22 Urine Color Yellow (Yellow) Urine Appearance Clear (CLEAR) Urine pH 5 (5-7) Ur Specific [place] 1.020 (1.005-1.030) Urine Protein Neg (Negative) Urine Glucose (UA) 4+ H (Normal) Urine Ketones 2+ H (Negative) Urine Nitrate Negative (Negative) Urine Bilirubin Neg (Negative) Ur Leukocyte Esterase Negative (Negative) Urine RBC 5-10 H (0-2) /hpf Urine WBC None (0-5) /hpf Coags 12/17/23 01:00 PT 14.20 INR 1.06 Cardiac Studies: No Data to Display
--- NOTE | 2023-12-18 11:32 | P.PN_ITS ---
Subjective 2 Subjective: Low-grade fever noted Status post left long hip nail postop day 0 Estimated blood loss 25 mL Hypertensive Tachycardic Vitals/I&O/Wt Last Vital Signs Temp 98.9 F 12/18/23 11:04 Pulse 103 H 12/18/23 11:04 Resp 20 H 12/18/23 11:04 BP 156/92 12/18/23 11:04 Pulse Ox 92 12/18/23 11:04 O2 Del Method Room Air 12/18/23 11:04 O2 Flow Rate 3 12/18/23 10:39 12/17/23 12/18/23 12/18/23 22:59 06:59 14:59 Intake Total 240 / 1083.75 918.75 / 2002.50 207.5 / 207.5 Output Total 2350 / 2350 700 / 3050 625 / 625 Balance -2110 / -1266.25 218.75 / -1047.50 -417.5 / -417.5 Weight last 48 hrs Weight 104.598 kg Weight 101.661 kg Weight 103.419 kg Physical Exam 2 Narrative: Currently on room air Tachycardia Hypertensive Awake and alert GCS 15 Pleasant and calm Nonfocal neuroexam Urinary Catheter Management: Min: Cath Placed During This Visit: yes Reason for Continuing Indwelling Catheter: Required Immobilization for Trauma or Surgery or Anesthesia Urinary Catheter Date of Insertion: 12/17/23 Urinary Catheter Time of Insertion: 02:21 Data 12/16/23 00:42 12/17/23 01:00 A&P Assessment and plan (1) Atrial fibrillation: Qualifiers: Atrial fibrillation type: unspecified Qualified Code(s): I48.91 - Unspecified atrial fibrillation (2) Anticoagulation adequate: (3) Diabetes: Qualifiers: Diabetes mellitus complication status: without complication Diabetes mellitus terminal clerk insulin use: without terminal clerk use Diabetes mellitus type: t ype 2 Qualified Code(s): E11.9 - Type 2 diabetes mellitus without complications (4) Closed fracture of left hip: Qualifiers: Encounter type: initial encounter Qualified Code(s): S72.002A - Fracture of unspecified part of neck of left femur, initial encounter for closed fracture (5) Fall: Qualifiers: Encounter type: initial encounter Qualified Code(s): W19.XXXA - Unspecified fall, initial encounter Plan Postop day 0 Patient will be needing short-term rehab Continue anticoagulating agent starting this evening Start consistent carb diet with sliding scale I will check A1c level Continue metoprolol succinate Opioids along bowel regimen Discontinue fluids Attestations 2 Medical Necessity Statement*: Likely discharge in next 24 to 48 hours Diagnoses Atrial fibrillation I48.91 Atrial fibrillation type: unspecified Anticoagulation adequate Z79.01 Diabetes E11.9 Diabetes mellitus complication status: without complication Diabetes mellitus terminal clerk insulin use: without terminal clerk use Diabetes mellitus type: type 2 Closed fracture of left hip S72.002A Encounter type: initial encounter Fall W19.XXXA Encounter type: initial encounter
[2023-12-18] MEDS: HYDROmorphone 1 mg/mL INJ 1 mL 0.5 MG IVP (12:27)
[2023-12-18] MEDS: sennosides-docusate Tablet 1 TAB PO ×2 (12:27→17:38)
[2023-12-18] MEDS: metoprolol succinate ER (24 HR) 100 mg Tablet PO (13:45)
--- NOTE | 2023-12-18 14:15 | ANE.PACU2 ---
Inpatient post-anesthesia follow up: Airway intact: Yes Vital signs: Temperature 98.5 F Pulse Rate 115 Respiratory Rate 17 Blood Pressure 134/83 Pulse Oximetry 93 Oxygen Delivery Me thod Room Air Oxygen Flow Rate 3 Fraction of Inspir ed Oxygen Hydration adequate: Yes Nausea and vomiting: No Pain level: 3 Mental status: Baseline
[2023-12-18 16:54] LABS: Glucose Point of Care 350 mg/dL (70-110)
[2023-12-18] MEDS: rivaroxaban 10 mg Tablet 20 MG PO (17:38)
[2023-12-18] MEDS: TRAMadol 50 mg Tablet 25 MG PO (17:38)
[2023-12-18] MEDS: insulin lispro 100 unit/1 mL SUBCUT (17:39)
[2023-12-18 22:05] LABS: Glucose Point of Care 362 mg/dL (70-110)
[2023-12-18] MEDS: insulin glargine 100 units/1 mL 10 UNIT SUBCUT (22:23)
[2023-12-19] MEDS: pantoprazole 40 mg SDV IVP (01:06)
[2023-12-19] MEDS: ceFAZolin 2,000 MG in sodium chloride 0.9% (plus) 50 ML 100 MG IV ×2 (01:06→09:07)
[2023-12-19 03:52] VITALS: BP 114/68; PULSE 87; RESP 18; TEMP 36.9; O2SAT 92
[2023-12-19 05:31] LABS: Basophils % 0.1 %; Hematocrit 32.1 % (37-53); Lymphocytes # 1.6 10^3/uL (0.8-4.8); Lymphocytes % 13.8 %; Mean Corpuscular HGB Conc 32.7 g/dL (30-55); Mean Corpuscular Hemoglobin 30.8 pg (27-33); Mean Corpuscular Volume 94.1 fl (82-101); Mean Platelet Volume 11.7 fL (7.4-10.4); Monocytes # 1.4 10^3/uL (0.2-0.9); Monocytes % 12.3 %; Neutrophils # 8.26 10^3/uL (1.8-7.7); Neutrophils % 73.4 %; Nucleated Red Blood Cells % 0 %; Platelet Count 150 10^3/cmm (157-399); Red Blood Count 3.41 10^6/uL (3.85-5.65); Red Cell Distribution Width 13.3 % (12.1-15.1); White Blood Count 11.25 10^3/uL (3.29-11.43)
[2023-12-19 05:53] LABS: Anion Gap 13.8 (5-19); Blood Urea Nitrogen 21 mg/dL (8-23); Calcium 9.1 mg/dL (8.5-10.5); Carbon Dioxide 26 mmol/L (22-29); Chloride 101 mmol/L (98-107); Glucose 264 mg/dL (65-115); Osmolality Calculated 294 mOsm/kg (285-295); Potassium 4.8 mmol/L (3.5-5.1); Sodium 136 mmol/L (136-145)
[2023-12-19 06:00] VITALS: BMI 35.9
[2023-12-19 07:19] LABS: Glucose Point of Care 255 mg/dL (70-110)
[2023-12-19 07:43] VITALS: BP 117/76; PULSE 98; RESP 16; TEMP 36.8; O2SAT 92
[2023-12-19] MEDS: insulin lispro 100 unit/1 mL SUBCUT ×2 (07:57→11:31)
[2023-12-19] MEDS: TRAMadol 50 mg Tablet 25 MG PO ×2 (08:49→13:55)
[2023-12-19] MEDS: acetaminophen 325 mg Tablet 650 MG PO ×2 (08:49→13:54)
[2023-12-19] MEDS: sennosides-docusate Tablet 1 TAB PO (09:06)
[2023-12-19] MEDS: metoprolol succinate ER (24 HR) 100 mg Tablet PO (09:07)
[2023-12-19] MEDS: lisinopril 10 mg Tablet PO (09:07)
--- NOTE | 2023-12-19 09:48 | P.PN_ITS ---
Subjective 2 Subjective: Patient is resting in bed he has not been up yet pain is controlled Vitals/I&O/Wt Last Vital Signs Temp 98.2 F 12/19/23 07:43 Pulse 98 12/19/23 07:43 Resp 16 12/19/23 07:43 BP 117/76 12/19/23 07:43 Pulse Ox 92 12/19/23 07:43 O2 Del Method Room Air 12/19/23 07:43 O2 Flow Rate 3 12/18/23 10:39 12/18/23 12/19/23 12/19/23 22:59 06:59 14:59 Intake Total 290 / 1277.5 50 / 1327.5 736 / 736 Output Total 1000 / 1625 1400 / 3025 Balance -710 / -347.5 -1350 / -1697.5 736 / 736 Weight last 48 hrs Weight 249 lb 14.4 oz Weight 230 lb 9.6 oz Weight 224 lb 2 oz Physical Exam 2 Narrative: Dressing is clean dry intact. Patient moving his leg feels like pain is better Urinary Catheter Management: Min: Cath Placed During This Visit: yes, but has since been removed by the nurse Reason for Continuing Indwelling Catheter: Decision to DC Catheter Urinary Catheter Date of Insertion: 12/17/23 Urinary Catheter Time of Insertion: 02:21 Date Urinary Catheter Removed: 12/19/23 Time Urinary Catheter Discontinued: 06:20 Data 12/19/23 05:26 12/19/23 05:26 A&P Assessment and plan (1) Closed fracture of left hip: Patient is status post left hip nail Weight-bear as tolerated DVT prophylaxis Xarelto Discharge planning Qualifiers: Encounter type: initial encounter Qualified Code(s): S72.002A - Fracture of unspecified part of neck of left femur, initial encounter for closed fracture Attestations 2 Medical Necessity Statement*: Per primary service Coding Level of Care Code Acute Code for [facility] Fwd Diagnoses Closed fracture of left hip S72.002A Encounter type: initial encounter
[2023-12-19 10:28] VITALS: BP 128/69; PULSE 88; RESP 16; TEMP 36.9; O2SAT 95
--- NOTE | 2023-12-19 10:31 | P.DS_ITS ---
Discharge Providers Date of Admission: 12/17/23 12:52 Date of Discharge: December 19, 2023 Attending Provider at Admission: Anibal Reynoso MD Attending Provider at Discharge: Caitlin Abraham MD Primary Care Provider: Tamar Jeff MD Diagnoses at Discharge Discharge Diagnosis (1) Closed fracture of left hip: Status: Acute Qualifiers: Encounter type: initial encounter Qualified Code(s): S72.002A - Fracture of unspecified part of neck of left femur, initial encounter for closed fracture Reason for Visit Reason for Visit: Fall; Left Hip Pain Hospital Course Hospital Course 78-year-old male who was admitted for management evaluation of hip fracture after he slipped on the ice, patient went for intervention, 12/18 left long hip nail intervention done by Dr. Cochran, no postop complication, patient will be put back on his Xarelto, we have arranged physical therapy with [facility] at [place]. Patient is doing well with PT, able to void, no active constipation. Physical Exam Narrative: Awake and alert GCS 15 Currently normal Present Abdomen soft Urinary Catheter Management: Min: Cath Placed During This Visit: yes, but has since been removed by the nurse Reason for Continuing Indwelling Catheter: Decision to DC Catheter Urinary Catheter Date of Insertion: 12/17/23 Urinary Catheter Time of Insertion: 02:21 Date Urinary Catheter Removed: 12/19/23 Time Urinary Catheter Discontinued: 06:20 Discharge Data Studies Completed and Pending Completed Studies During Hospitalization Category Date Time Status XR chest 1V portable [id number] Stat Exams 12/17/23 01:27 Completed XR hip LT 2-3V wo/w pel* [id number] Stat Exams 12/16/23 23:40 Completed Radiology Impressions Hip/Pelvis X-Ray 12/16/23 23:40 IMPRESSION: Comminuted displaced and angulated intratrochanteric fracture of the left femur. Chest X-Ray 12/17/23 01:27 IMPRESSION: No focal consolidation. Laboratory Results WBC 11.25 10^3/uL (3.29-11.43) 12/19/23 05:26 RBC 3.41 10^6/uL (3.85-5.65) L 12/19/23 05:26 Hgb 10.50 g/dL (11.27-16.99) L 12/19/23 05:26 Hct 32.1 % (37-53) L 12/19/23 05:26 MCV 94.1 fl (82-101) 12/19/23 05:26 MCH 30.8 pg (27-33) 12/19/23 05:26 MCHC 32.7 g/dL (30-55) 12/19/23 05:26 RDW 13.3 % (12.1-15.1) 12/19/23 05:26 Plt Count 150 10^3/cmm (157-399) L 12/19/23 05:26 MPV 11.7 fL (7.4-10.4) H 12/19/23 05:26 Neut % (Auto) 73.4 % 12/19/23 05:26 Lymph % (Auto) 13.8 % 12/19/23 05:26 [place] % (Auto) 12.3 % 12/19/23 05:26 Eos % (Auto) 0.0 % 12/19/23 05:26 Baso % (Auto) 0.1 % 12/19/23 05:26 Neut # (Auto) 8.26 10^3/uL (1.8-7.7) H 12/19/23 05:26 Lymph # (Auto) 1.6 10^3/uL (0.8-4.8) 12/19/23 05:26 [place] # (Auto) 1.4 10^3/uL (0.2-0.9) H 12/19/23 05:26 Eos # (Auto) 0.0 10^3/uL (0.0-0.8) 12/19/23 05:26 Baso # (Auto) 0.0 10^3/uL (0.0-0.1) 12/19/23 05:26 Nucleated RBC % (auto) 0 % 12/19/23 05:26 Nucleated RBCs # 0.0 /100WBC 12/19/23 05:26 PT 14.20 SECONDS (12.1-14.9) 12/17/23 01:00 INR 1.06 (0.8-1.2) 12/17/23 01:00 Sodium 136 mmol/L (136-145) 12/19/23 05:26 Potassium 4.8 mmol/L (3.5-5.1) 12/19/23 05:26 Chloride 101 mmol/L (98-107) 12/19/23 05:26 Carbon Dioxide 26 mmol/L (22-29) 12/19/23 05:26 Anion Gap 13.8 (5-19) 12/19/23 05:26 BUN 21 mg/dL (8-23) 12/19/23 05:26 Creatinine 0.8 mg/dL (0.7-1.2) 12/19/23 05:26 GFR Calculation Not Reportable 12/19/23 05:26 Glucose 264 mg/dL (65-115) H 12/19/23 05:26 POC Glucose 255 mg/dL (70-110) H 12/19/23 07:10 Estimat Average Glucose 272 12/17/23 02:46 Hemoglobin A1c 11.1 % (4.0-6.0) H 12/17/23 02:46 Calculated Osmolality 294 mOsm/kg (285-295) 12/19/23 05:26 Lactic Acid 1.5 mmol/L (0.5-2.2) 12/17/23 02:46 Calcium 9.1 mg/dL (8.5-10.5) 12/19/23 05:26 Phosphorus 2.5 mg/dL (2.5-4.5) 12/17/23 01:00 Magnesium 1.9 mg/dL (1.7-2.3) 12/17/23 01:00 Total Bilirubin 1.9 mg/dL (0.15-1.2) H 12/17/23 01:00 AST 32 U/L (0-40) 12/17/23 01:00 ALT 19 U/L (0-41) 12/17/23 01:00 Alkaline Phosphatase 70 U/L (40-130) 12/17/23 01:00 Creatine Kinase 497 U/L (39-308) H* 12/17/23 01:00 Troponin T Baseline 55 ng/L (0-15) H 12/17/23 01:00 Troponin T 120 Minute 46.20 ng/L (0-15) H 12/17/23 02:46 Delta Troponin T -8.80 ABS# (0-10) L 12/17/23 02:46 Troponin T Hi Sens 6Hr 38.77 ng/L (0-15) H 12/17/23 07:00 Troponin T Hi Sens 6Hr Delta -16.23 ng/L (0-12) L 12/17/23 07:00 NT-Pro-B Natriuret Pep 1868 pg/mL (0-450) H 12/17/23 01:00 Total Protein 7.3 g/dL (6.6-8.7) 12/17/23 01:00 Albumin 4.0 g/dL (3.5-5.2) 12/17/23 01:00 Globulin 3.3 g/dL (1.3-4.6) 12/17/23 01:00 Triglycerides 96 mg/dL (0-150) 12/17/23 01:00 Cholesterol 183 mg/dL (0-200) 12/17/23 01:00 LDL Cholesterol, Calc 121 mg/dL (50-129) 12/17/23 01:00 HDL Cholesterol 43 mg/dL (60-100) L 12/17/23 01:00 LDL/HDL Ratio 2.81 RATIO (0.00-3.22) 12/17/23 01:00 Cholesterol/HDL Ratio 4.26 mg/dL (1.0-5.00) 12/17/23 01:00 Procalcitonin 0.34 ng/mL (0-0.5) 12/17/23 01:00 TSH 1.65 uIU/mL (0.27-4.20) 12/17/23 01:00 Urine Color Yellow (Yellow) 12/17/23 02:22 Urine Appearance Clear (CLEAR) 12/17/23 02:22 Urine pH 5 (5-7) 12/17/23 02:22 Ur Specific [place] 1.020 (1.005-1.030) 12/17/23 02:22 Urine Protein Neg (Negative) 12/17/23 02:22 Urine Glucose (UA) 4+ (Normal) H 12/17/23 02:22 Urine Ketones 2+ (Negative) H 12/17/23 02:22 Urine Blood 2+ (Negative) H 12/17/23 02:22 Urine Nitrate Negative (Negative) 12/17/23 02:22 Urine Bilirubin Neg (Negative) 12/17/23 02:22 Urine Urobilinogen Neg mg/dL (Negative) 12/17/23 02:22 Ur Leukocyte Esterase Negative (Negative) 01/23/24 02:22 Urine RBC 5-10 /hpf (0-2) H 12/17/23 02:22 Urine WBC None /hpf (0-5) 12/17/23 02:22 Ur Squamous Epith Cells None /hpf (0-5) 12/17/23 02:22 Amorphous Sediment Not Reportable 12/17/23 02:22 Urine Bacteria Trace /hpf (NONE) 12/17/23 02:22 Urine Mucus Trace /hpf 12/17/23 02:22 Vitals Last Vital Signs Temp 98.5 F 12/19/23 10:28 Pulse 88 12/19/23 10:28 Resp 16 12/19/23 10:28 BP 128/69 12/19/23 10:28 Pulse Ox 95 12/19/23 10:28 O2 Del Method Room Air 12/19/23 10:28 O2 Flow Rate 3 12/18/23 10:39 Discharge Plan Discharge Patient Disposition: Xfer SNF Condition: Stable Prescriptions: New tramadol 100 mg tablet 50 mg PO Q8H PRN (Reason: pain) Qty: 14 0RF sennosides-docusate sodium [Stool Softener-Laxative] 8.6-50 mg Tablet 1 tab PO BID Qty: 30 0RF Continued atorvastatin 40 mg Tablet See Rx Instructions .ROUTE .COMPLEX Rx Instructions: Take 1 tablet by mouth on Saturday, Saturday, Saturday, and Saturday. metoprolol succinate 200 mg Tablet Extended Release 24 Hr 100 mg PO DAILY lisinopril 20 mg Tablet 10 mg PO DAILY glipizide 10 mg Tablet 10 mg PO BID pioglitazone 45 mg tablet 45 mg PO DAILY furosemide 20 mg Tablet 20 mg PO QA Fish Oil 300-1,000 mg Capsule 1 cap PO BID Xarelto 20 mg Tablet 20 mg PO QPM Rx Instructions: must administer with evening meal Discharge Orders: Discharge Order (Routine); Ordered 12/19/23 Ordered By: Caitlin Abraham Referrals: Jaylen Cochran DO [Physician] - 2 weeks Activity Restrictions/Additional Instructions: You are being discharged from the hospital today during which time you have been under the care of Dr. Cochran. You had a left intertrochanteric hip fracture. You were treated for this injury with left intramedullary nail. You may resume you normal diet (including any special diets as directed by your primary doctor) as well as your home medications. You should follow up with you primary doctor if you have any questions regarding medication you took prior to your stay in the hospital. You may take your pain medication as prescribed. After the first few days, take your pain medication as needed. Do not drive or drink alcohol while taking your pain medication. Your injury may increase your risk of developing a blood clot,or DVT, in your arm or leg. This could potentially dislodge and travel to your lungs and become a life threatening condition called apulmonary embolus,or PE. You have been prescribed Xarelto to be taken to prevent this. Frequent movement of the legs w ill also help prevent this from occurring. If you develop any new or worsening cough, chestpain, bloody sputum or shortness of breath, call 911 or go to the EmergencyRoom. Always keep your surgical incision/dressing clean and dry. If you experience increasing pain at your incision site, redness, swelling, increasing discharge, foul odors, or fevers (greater than 100.4), night sweats or chills you should call the office at the above number. If you feel this is an emergency you should be evaluated in the Emergency Department of a nearby hospital. Orthopedic Patient Instructions Summary: Weight Bearing: Weight-bear as tolerated Activity: As tolerated. Diet: Regular. Wound Care: Keep dressing clean and dry. Anticoagulation: Xarelto Pain Medication: Take only as needed. Ice, rest and elevation will be of great benefit. Please plan to follow-up lary Cochran in 2 weeks. You will need to call the clinic [phone] to schedule this visit. Thank you far allowing me to participate in your care. Do not hesitate to call the office with any questions or concerns. Discharge Attestations Time Spent in Discharge Care*: greater than 30 min Quality Metrics Clinical Quality Measures [ No reported AMI, CVA or VTE this stay] Coding Level of Care Code Acute Code for [facility] Fwd Diagnoses Closed fracture of left hip S72.002A Encounter type: initial encounter
--- NOTE | 2023-12-19 10:37 | PM.PN ---
Subjective Subjective: Patient is awake and alert No acute complaints Awaiting placement Vitals/I&O/Wt Last Vital Signs Temp 98.5 F 12/19/23 10:28 Pulse 88 12/19/23 10:28 Resp 16 12/19/23 10:28 BP 128/69 12/19/23 10:28 Pulse Ox 95 12/19/23 10:28 O2 Del Method Room Air 12/19/23 10:28 O2 Flow Rate 3 12/18/23 10:39 12/18/23 12/19/23 12/19/23 22:59 06:59 14:59 Intake Total 290 / 1277.5 50 / 1327.5 786 / 786 Output Total 1000 / 1625 1400 / 3025 Balance -710 / -347.5 -1350 / -1697.5 786 / 786 Weight last 48 hrs Weight 113.353 kg Weight 104.598 kg Weight 101.661 kg Physical Exam Narrative: Abdomen soft Continue Hemodynamic stable Pleasant GCS 15 Nonfocal neuroexam Urinary Catheter Management: Min: Cath Placed During This Visit: yes, but has since been removed by the nurse Reason for Continuing Indwelling Catheter: Decision to DC Catheter Urinary Catheter Date of Insertion: 12/17/23 Urinary Catheter Time of Insertion: 02:21 Date Urinary Catheter Removed: 12/19/23 Time Urinary Catheter Discontinued: 06:20 Data 12/19/23 05:26 12/19/23 05:26 A&P Assessment and plan (1) Atrial fibrillation: Qualifiers: Atrial fibrillation type: unspecified Qualified Code(s): I48.91 - Unspecified atrial fibrillation (2) Anticoagulation adequate: (3) Diabetes: Qualifiers: Diabetes mellitus complication status: without complication Diabetes mellitus computer terminal operator insulin use: without chcf use Diabetes mellitus type: type 2 Qualified Code(s): E11.9 - Type 2 diabetes mellitus without complications (4) Closed fracture of left hip: Qualifiers: Encounter type: initial encounter Qualified Code(s): S72.002A - Fracture of unspecified part of neck of left femur, initial encounter for closed fracture Plan Continue Xarelto No active bowel movement however patient stating that he does not feel constipated He does have senna S Pain well-managed Awaiting placement Attestations Medical Necessity Statement*: Awaiting placement Diagnoses Atrial fibrillation I48.91 Atrial fibrillation type: unspecified Anticoagulation adequate Z79.01 Diabetes E11.9 Diabetes mellitus complication status: without complication Diabetes mellitus computer terminal operator insulin use: without computer terminal operator use Diabetes mellitus type: type 2 Closed fracture of left hip S72.002A Encounter type: initial encounter
--- NOTE | 2023-12-19 10:43 | PC.CHAP ---
Pastoral Care Encounter/Spiritual Assessment Type of Contact [] Declined access services representative visit [] Patient/Family/Request visit [] Outpatient visit [] Follow-up visit [] Physician referral [] Code/Alert [x] Routine visit [] Staff referral [] Actively dying [] Patient sleeping [] Family support [] [] Out of room [] Palliative care [] [x] Receiving care in room [] Pre-surgical visit [] Trauma [] Long length of stay [] ICU visit [] Other: Relational/Emotional Strength [] Patient feels connected with others/family/visitors/staff [] Distress [] Loneliness/isolation [] Abandonment Spirituality of Patient [] Person of Ewa [] Attends Confucianist of their Ewa [] Believes in Prayer [] Reads Bible or Voodoo materials [] There are Spiritual issues to be addressed Investor Interventions [] Prayer [] Active listening [] Non-anxious presence [] Spiritual/emotional support [] Crisis/trauma care [] Spiritual counseling [] Bereavement support [] Provided bereavement packet [] Provided Bible/devotional materials [] Provided toy/stuffed animal, coloring book to patient or family member [] Provided Communion [] Anointing/[place] [] Salvation [] Completed spiritual assessment [] Other: Impact on Illness or Injury [] Angry [] Fearful [] Anxious [] Often cries [] Exhaustion [] Unable to work [] Unable to attend jewish [] Unable to walk/stand [] Unable to read [] Unable to drive [] Unable to eat/drink [] Unable to sleep [] Unable to be with family [] Patient intubated [] Other: Summary has a good attitude and well be going home Time spent with patient 5 MINS
[2023-12-19 10:52] LABS: Glucose Point of Care 337 mg/dL (70-110)
[2023-12-19 11:28] VITALS: PULSE 93; RESP 16; O2SAT 92
[2023-12-19 11:48] VITALS: RESP 16; O2SAT 92
[2023-12-19] MEDS: oxyCODONE 5 mg IR Tab/Cap PO (11:48)
--- NOTE | 2023-12-19 13:06 | PM.DCS ---
Discharge Providers Date of Admission: 12/17/23 12:52 Date of Discharge: December 19, 2023 Attending Provider at Admission: Anibal Reynoso MD Attending Provider at Discharge: Caitlin Abraham MD Primary Care Provider: Tamar Jeff MD Diagnoses at Discharge Discharge Diagnosis (1) Closed fracture of left hip: Status: Acute Qualifiers: Encounter type: initial encounter Qualified Code(s): S72.002A - Fracture of unspecified part of neck of left femur, initial encounter for closed fracture Reason for Visit Reason for Visit: Fall; Left Hip Pain Hospital Course Hospital Course 78-year-old male who was admitted for management evaluation of hip fracture after he slipped on the ice, patient went for intervention, 12/18 left long hip nail intervention done by Dr. Cochran, no postop complication, patient will be put back on his Xarelto, we have arranged physical therapy with [facility] at [place]. Patient is doing well with PT, able to void, no active constipation. Physical Exam Urinary Catheter Management: Min: Cath Placed During This Visit: yes, but has since been removed by the nurse Reason for Continuing Indwelling Catheter: Decision to DC Catheter Urinary Catheter Date of Insertion: 12/17/23 Urinary Catheter Time of Insertion: 02:21 Date Urinary Catheter Removed: 12/19/23 Time Urinary Catheter Discontinued: 06:20 Discharge Data Studies Completed and Pending Completed Studies During Hospitalization Category Date Time Status XR chest 1V portable [id number] Stat Exams 12/17/23 01:27 Completed XR hip LT 2-3V wo/w pel* [id number] Stat Exams 12/16/23 23:40 Completed Pending at discharge Category Date Time Status COVID [SARS Covid-2 Antigen] Routine Lab 12/19/23 12:29 Uncollected Radiology Impressions Hip/Pelvis X-Ray 12/16/23 23:40 IMPRESSION: Comminuted displaced and angulated intratrochanteric fracture of the left femur. Chest X-Ray 12/17/23 01:27 IMPRESSION: No focal consolidation. Laboratory Results WBC 11.25 10^3/uL (3.29-11.43) 12/19/23 05:26 RBC 3.41 10^6/uL (3.85-5.65) L 12/19/23 05:26 Hgb 10.50 g/dL (11.27-16.99) L 12/19/23 05:26 Hct 32.1 % (37-53) L 12/19/23 05:26 MCV 94.1 fl (82-101) 12/19/23 05:26 MCH 30.8 pg (27-33) 12/19/23 05:26 MCHC 32.7 g/dL (30-55) 12/19/23 05:26 RDW 13.3 % (12.1-15.1) 12/19/23 05:26 Plt Count 150 10^3/cmm (157-399) L 12/19/23 05:26 MPV 11.7 fL (7.4-10.4) H 12/19/23 05:26 Neut % (Auto) 73.4 % 12/19/23 05:26 Lymph % (Auto) 13.8 % 12/19/23 05:26 [place] % (Auto) 12.3 % 12/19/23 05:26 Eos % (Auto) 0.0 % 12/19/23 05:26 Baso % (Auto) 0.1 % 12/19/23 05:26 Neut # (Auto) 8.26 10^3/uL (1.8-7.7) H 12/19/23 05:26 Lymph # (Auto) 1.6 10^3/uL (0.8-4.8) 12/19/23 05:26 [place] # (Auto) 1.4 10^3/uL (0.2-0.9) H 12/19/23 05:26 Eos # (Auto) 0.0 10^3/uL (0.0-0.8) 12/19/23 05:26 Baso # (Auto) 0.0 10^3/uL (0.0-0.1) 12/19/23 05:26 Nucleated RBC % (auto) 0 % 12/19/23 05:26 Nucleated RBCs # 0.0 /100WBC 12/19/23 05:26 PT 14.20 SECONDS (12.1-14.9) 12/17/23 01:00 INR 1.06 (0.8-1.2) 12/17/23 01:00 Sodium 136 mmol/L (136-145) 12/19/23 05:26 Potassium 4.8 mmol/L (3.5-5.1) 12/19/23 05:26 Chloride 101 mmol/L (98-107) 12/19/23 05:26 Carbon Dioxide 26 mmol/L (22-29) 12/19/23 05:26 Anion Gap 13.8 (5-19) 12/19/23 05:26 BUN 21 mg/dL (8-23) 12/19/23 05:26 Creatinine 0.8 mg/dL (0.7-1.2) 12/19/23 05:26 GFR Calculation Not Reportable 12/19/23 05:26 Glucose 264 mg/dL (65-115) H 12/19/23 05:26 POC Glucose 337 mg/dL (70-110) H 12/19/23 10:23 Estimat Average Glucose 272 12/17/23 02:46 Hemoglobin A1c 11.1 % (4.0-6.0) H 12/17/23 02:46 Calculated Osmolality 294 mOsm/kg (285-295) 12/19/23 05:26 Lactic Acid 1.5 mmol/L (0.5-2.2) 12/17/23 02:46 Calcium 9.1 mg/dL (8.5-10.5) 12/19/23 05:26 Phosphorus 2.5 mg/dL (2.5-4.5) 12/17/23 01:00 Magnesium 1.9 mg/dL (1.7-2.3) 12/17/23 01:00 Total Bilirubin 1.9 mg/dL (0.15-1.2) H 12/17/23 01:00 AST 32 U/L (0-40) 12/17/23 01:00 ALT 19 U/L (0-41) 12/17/23 01:00 Alkaline Phosphatase 70 U/L (40-130) 12/17/23 01:00 Creatine Kinase 497 U/L (39-308) H* 12/17/23 01:00 Troponin T Baseline 55 ng/L (0-15) H 12/17/23 01:00 Troponin T 120 Minute 46.20 ng/L (0-15) H 12/17/23 02:46 Delta Troponin T -8.80 ABS# (0-10) L 12/17/23 02:46 Troponin T Hi Sens 6Hr 38.77 ng/L (0-15) H 12/17/23 07:00 Troponin T Hi Sens 6Hr Delta -16.23 ng/L (0-12) L 12/17/23 07:00 NT-Pro-B Natriuret Pep 1868 pg/mL (0-450) H 12/17/23 01:00 Total Protein 7.3 g/dL (6.6-8.7) 12/17/23 01:00 Albumin 4.0 g/dL (3.5-5.2) 12/17/23 01:00 Globulin 3.3 g/dL (1.3-4.6) 12/17/23 01:00 Triglycerides 96 mg/dL (0-150) 12/17/23 01:00 Cholesterol 183 mg/dL (0-200) 12/17/23 01:00 LDL Cholesterol, Calc 121 mg/dL (50-129) 12/17/23 01:00 HDL Cholesterol 43 mg/dL (60-100) L 12/17/23 01:00 LDL/HDL Ratio 2.81 RATIO (0.00-3.22) 12/17/23 01:00 Cholesterol/HDL Ratio 4.26 mg/dL (1.0-5.00) 12/17/23 01:00 Procalcitonin 0.34 ng/mL (0-0.5) 12/17/23 01:00 TSH 1.65 uIU/mL (0.27-4.20) 12/17/23 01:00 Urine Color Yellow (Yellow) 12/17/23 02:22 Urine Appearance Clear (CLEAR) 12/17/23 02:22 Urine pH 5 (5-7) 12/17/23 02:22 Ur Specific [place] 1.020 (1.005-1.030) 12/17/23 02:22 Urine Protein Neg (Negative) 12/17/23 02:22 Urine Glucose (UA) 4+ (Normal) H 12/17/23 02:22 Urine Ketones 2+ (Negative) H 12/17/23 02:22 Urine Blood 2+ (Negative) H 12/17/23 02:22 Urine Nitrate Negative (Negative) 12/17/23 02:22 Urine Bilirubin Neg (Negative) 12/17/23 02:22 Urine Urobilinogen Neg mg/dL (Negative) 12/17/23 02:22 Ur Leukocyte Esterase Negative (Negative) 12/17/23 02:22 Urine RBC 5-10 /hpf (0-2) H 12/17/23 02:22 Urine WBC None /hpf (0-5) 12/17/23 02:22 Ur Squamous Epith Cells None /hpf (0-5) 12/17/23 02:22 Amorphous Sediment Not Reportable 12/17/23 02:22 Urine Bacteria Trace /hpf (NONE) 12/17/23 02:22 Urine Mucus Trace /hpf 12/17/23 02:22 Vitals Last Vital Signs Temp 98.5 F 12/19/23 10:28 Pulse 93 12/19/23 11:28 Resp 16 12/19/23 11:48 BP 128/69 12/19/23 10:28 Pulse Ox 92 12/19/23 11:48 O2 Del Method Room Air 12/19/23 11:28 O2 Flow Rate 3 12/18/23 10:39 Discharge Plan Discharge Patient Disposition: Xfer SNF Condition: Stable Prescriptions: New Stool Softener-Laxative 8.6-50 mg Tablet 1 tab PO BID Qty: 30 0RF tramadol 100 mg tablet 50 mg PO Q8H PRN (Reason: pain) Qty: 14 0RF sennosides-docusate sodium [Laxacin] 8.6-50 mg tablet 1 tab-cap PO DAILY Qty: 20 0RF tramadol 50 mg tablet 25 mg PO Q6H PRN (Reason: pain) Qty: 20 0RF Continued atorvastatin 40 mg Tablet See Rx Instructions .ROUTE .COMPLEX Rx Instructions: Take 1 tablet by mouth on Saturday, Saturday, Saturday, and Saturday. metoprolol succinate 200 mg Tablet Extended Release 24 Hr 100 mg PO DAILY lisinopril 20 mg Tablet 10 mg PO DAILY glipizide 10 mg Tablet 10 mg PO BID pioglitazone 45 mg tablet 45 mg PO DAILY furosemide 20 mg Tablet 20 mg PO QAM Fish Oil 300-1,000 mg Capsule 1 cap PO BID Xarelto 20 mg Tablet 20 mg PO QPM Rx Instructions: must administer with evening meal Discharge Orders: Discharge Order (Routine); Ordered 12/19/23 Ordered By: Caitlin Abraham Referrals: [facility]– [place][Note 2] [Outside] Jaylen Cochran DO [Physician] - 2 weeks (We have notified your physician's clinic of the need for a follow-up appointment to be scheduled. If you have not heard from them within the next 2 business days, please call them directly. ) Patient Instructions: Laxative, Stool Softeners (By mouth) (Doculax, Colace, Colace Clear, DSS), Tramadol (By mouth) (Ultram, Ultram ER, [place], Theratramadol-60, Qdolo), Hip Fracture (ED), Intramedullary Nailing (DC) Activity Restrictions/Additional Instructions: You are being discharged from the hospital today during which time you have been under the care of Dr. Cochran. You had a left intertrochanteric hip fracture. You were treated for this injury with left intramedullary nail. You may resume you normal diet (including any special diets as directed by your primary doctor) as well as your home medications. You should follow up with you primary doctor if you have any questions regarding medication you took prior to your stay in the hospital. You may take your pain medication as prescribed. After the first few days, take your pain medication as needed. Do not drive or drink alcohol while taking your pain medication. Your injury may increase your risk of developing a blood clot,or DVT, in your arm or leg. This could potentially dislodge and travel to your lungs and become a life threatening condition called apulmonary embolus,or PE. You have been prescribed Xarelto to be taken to prevent this. Frequent movement of the legs will also help prevent this from occurring. If you develop any new or worsening cough, chestpain, bloody sputum or shortness of breath, call 911 or go to the EmergencyRoom. Always keep your surgical incision/dressing clean and dry. If you experience increasing pain at your incision site, redness, swelling, increasing discharge, foul odors, or fevers (greater than 100.4), night sweats or chills you should call the office at the above number. If you feel this is an emergency you should be evaluated in the Emergency Department of a nearby hospital. Orthopedic Patient Instructions Summary: Weight Bearing: Weight-bear as tolerated Activity: As tolerated. Diet: Regular. Wound Care: Keep dressing clean and dry. Anticoagulation: Xarelto Pain Medication: Take only as needed. Ice, rest and elevation will be of great benefit. Please plan to follow-up [facility] Dr Cochran in 2 weeks. You will need to call the clinic [phone] to schedule this visit. Thank you far allowing me to participate in your care. Do not hesitate to call the office with any questions or concerns. Coding Level of Care Code Acute Code for [facility] Fwd Diagnoses Closed fracture of left hip S72.002A Encounter type: initial encounter
[2023-12-19 13:39] LABS: SARS Covid-2 Antigen negative (Negative)
[2023-12-19 15:02] VITALS: RESP 16; O2SAT 92
== END 2023-12-19 15:03 | disposition skilled nursing facility (03) | DRG 482 ==
LOC: ER 12-17 11:14 → MEDSURG 12-17 12:53
PROVIDERS: Emergency Medicine; Orthopaedic Surgery; Admitting Provider Family Medicine; Emergency Provider Nurse Practitioner Family; PCP Family Medicine; Visit Provider Internal Medicine
PROC: 0QS736Z Reposition Left Upper Femur with Intramedullary Internal Fixation Device, Percutaneous Approach (ICD-10-PCS; CPT 27245; principal; 2023-12-18 08:25)
DX: S72.142A Displaced intertrochanteric fracture of left femur, initial encounter for closed fracture (principal); W00.1XXA Fall from stairs and steps due to ice and snow, initial encounter; Y92.007 Garden or yard of unspecified non-institutional (private) residence as the place of occurrence of the external cause; J44.9 Chronic obstructive pulmonary disease, unspecified; E11.9 Type 2 diabetes mellitus without complications; I10 Essential (primary) hypertension; I48.91 Unspecified atrial fibrillation; Z79.01 Long term (current) use of anticoagulants
CPT/HCPCS: 36415; 36416; 51702; 71045; 73502; 76000; 80048; 80053; 80061; 81001; 82550; 82962; 83036; 83605; 83735; 83880; 84100; 84145; 84443; 84484; 85025; 85610; 87426; 93005; 94664; 96372; 97110; 97116; 97162; 97166; 97530; 99285; C1713; C9113; J0690; J1100; J1170; J1815; J2371; J2405; J2704; J3010; J7030

== ENCOUNTER → 2024-01-03 10:20 | Outpatient (BNVA) | payer OTHER, SELFPAY | PROVIDERS: PCP Family Medicine; Visit Provider Orthopaedic Surgery | DX: S72.002D Fracture of unspecified part of neck of left femur, subsequent encounter for closed fracture with routine healing; X58.XXXD Exposure to other specified factors, subsequent encounter; Z96.7 Presence of other bone and tendon implants | CPT/HCPCS: 99024 ==

== ENCOUNTER → 2024-01-24 09:50 | Outpatient (BNVA) | payer OTHER, SELFPAY | PROVIDERS: PCP Family Medicine; Visit Provider Orthopaedic Surgery | DX: Z98.890 Other specified postprocedural states; M25.552 Pain in left hip | CPT/HCPCS: 73502; 99024 ==

== ENCOUNTER 2024-05-08 10:08 | Outpatient (CLI) | payer OTHER, SELFPAY ==
--- NOTE | 2024-05-08 10:15 | MR_ITS ---
WS: [id number] MRI LUMBAR SPINE NONCONTRAST HISTORY: LOW BACK PAIN/BILAT LEG PAIN/HX OF L HIP ARTHROPLASTY COMPARISON: None available. TECHNIQUE: Sagittal and axial multisequence imaging is submitted. Mild scoliosis and curvature lumbar spine with slight increase in the lumbar lordosis. No marrow edema or fracture. Schmorl's node superior endplate of L4. Mild disc space desiccation throughout the lumbar spine. Conus terminates normally at L1-2 disc level. L1-L2: Normal. L2-L3: Mild asymmetric disc bulging to the LEFT. Mild ligamentum flavum and facet arthritis. Mild cammy ateral foraminal narrowing. L3-L4: Mild annular disc bulging and osteophytic ridging. Mild central and subarticular recess encroa chment. Moderate to severe RIGHT and mild LEFT foraminal stenosis. L4-L5: Diffuse marked annular disc bulging with ligamentum flavum and facet arthritis. Effacement of CSF and disc contact on the traversing L5 nerve roots. Severe central, bilateral subarticular recess and foraminal stenosis. L5-S1: Mild annular disc bulging with moderate facet joint arthritis. Mild bilateral foraminal stenos is, LEFT greater than RIGHT. RIGHT renal cyst. Largest measures approximately 4.8 x 4.0 cm. There is an additional cyst more super iorly which is incompletely visualized. MR/MR lumbar spine wo con* [id number] IMPRESSION: 1. L4-5: Severe central, bilateral subarticular recess and foraminal stenosis due to combination of disc bulging, facet and ligamentum flavum disease. 2. L3-4: Mild central and subarticular recess stenosis. Moderate to severe RIG HT and mild LEFT foraminal stenosis. 3. Mild bilateral foraminal stenosis at L2-3 and L5-S1. 4. No fractures.
== END 2024-05-08 10:09 | disposition home or self-care (01) ==
PROVIDERS: PCP Family Medicine; Visit Provider Family Medicine
DX: M99.63 Osseous and subluxation stenosis of intervertebral foramina of lumbar region (principal); M48.061 Spinal stenosis, lumbar region without neurogenic claudication; M51.36 Other intervertebral disc degeneration, lumbar region; N28.1 Cyst of kidney, acquired
CPT/HCPCS: 72148

== ENCOUNTER → 2024-06-16 10:51 | Outpatient (BNVA) | payer OTHER, SELFPAY | PROVIDERS: PCP Family Medicine; Visit Provider Orthopaedic Surgery | DX: M54.50 Low back pain, unspecified (principal); Z98.890 Other specified postprocedural states; S72.145K Nondisplaced intertrochanteric fracture of left femur, subsequent encounter for closed fracture with nonunion; X58.XXXD Exposure to other specified factors, subsequent encounter | CPT/HCPCS: 36415; 73502; 80053; 81003; 85025; 99214 ==

== ENCOUNTER → 2024-06-29 12:01 | Outpatient (BNVA) | payer MEDICARE, SELFPAY | PROVIDERS: PCP Family Medicine; Visit Provider Family Medicine | DX: Z01.818 Encounter for other preprocedural examination (principal) | CPT/HCPCS: 83036 ==

== ENCOUNTER 2024-07-08 07:14 | Day surgery (SDC) | payer OTHER, SELFPAY ==
[2024-07-08] VITALS (7 sets, daily range): BP systolic 91–131; BP diastolic 50–98; PULSE 77–91; RESP 12–20; TEMP 36.3–36.6; O2SAT 90–97; BMI 32.7
--- NOTE | 2024-07-08 07:59 | P.ANESASSM_ITS ---
Pre-Anesthetic Assessment Height/Weight: Height 1.78 m Weight 103.419 kg Temp Pulse Resp BP Pulse Ox O2 Del Method 97.9 F 91 18 131/98 97 Room Air 07/08/24 07:36 07/08/24 07:36 07/08/24 07:36 07/08/24 07:36 07/08/24 07:36 07/08/24 07:36 Preop Diagnosis: Nonunion femur fracture Operation Date: 07/08/24 08:50 Proposed Procedures p Hardware Removal Femur(Left) - Jaylen Cochran, Familial anesthetic complications: None Was Beta Marisol taken within 24 hours: N/A Was Clonidine taken within 24 hours: N/A Last intake: Intake Last Liquid Date 07/07/24 Last Liquid Time 19:00 Last Solid Date 07/07/24 Last Solid Time 19:00 Social No alcohol and No tobacco Exam alert, oriented x 3, clear to auscultation bilaterally and regular rate & rhythm Airway Mallampati: Class III Dentition: false CV/HEM Atrial Fibrillation, Coronary Artery Disease (Hx cabg) and Hypertension Metabolic Diabetes Mellitus Anesthetic Plan ASA status: 3 Anesthesia: General Risk of > 500 ml blood loss (7ml/kg in children): No Medications/Allergies Home Medications Medication Instructions Recorded Confirmed Last Taken Type atorvastatin 40 mg tablet See Rx Instructions .Route .COMPLEX 12/17/23 07/07/24 07/07/24 History furosemide 20 mg tablet 20 mg PO QAM 12/17/23 07/07/24 07/07/24 History glipizide 10 mg tablet 10 mg PO BID 12/17/23 07/07/24 07/07/24 History lisinopril 20 mg tablet 10 mg PO DAILY 12/17/23 07/07/24 07/07/24 History metoprolol succinate 200 mg 100 mg PO DAILY 12/17/23 07/07/24 07/07/24 History tablet,extended release 24 hr omega 0-las-pyb-fish oil 300 1 cap PO BID 12/17/23 07/07/24 07/07/24 History mg-1,000 mg capsule (Fish Oil) pioglitazone 45 mg tablet 45 mg PO DAILY 12/17/23 07/07/24 07/07/24 History rivaroxaban 20 mg tablet (Xarelto) 20 mg PO QPM 12/17/23 07/07/24 07/01/24 History potassium chloride 10 mEq 10 meq PO DAILY 06/29/24 07/07/24 07/07/24 History tablet,extended release sennosides 8.6 mg-docusate sodium 1 tab PO BID PRN Constipation 06/29/24 07/07/24 Unknown History 50 mg tablet (Stool Softener-Laxative) Allergies Allergy/AdvReac Type Severity Reaction Status Date / Time No Known Allergies Allergy Verified 07/08/24 07:26 [facility] Anesthesia Medical History Diabetes Anticoagulation adequate Atrial fibrillation Fall Closed fracture of left hip History of hypertension Surgical History History of appendectomy Family History Mother Alzheimer's dementia Father Cancer Social History Smoking and tobacco/nicotine status: never used tobacco/nicotine Alcohol intake: never Substance/Drug Use: never Data Anesthesia Cardiac Studies: No Data to Display
--- NOTE | 2024-07-08 08:12 | W.PM.OPSUD ---
Surgery/Procedure H&P Update DATE OF PROCEDURE: July 08, 2024 DATE H&P PERFORMED: 06/29/24 H&P UPDATE INFORMATION: I have reviewed H&P completed within last 30 days, I have examined patient prior to procedure and No changes to prior documentation PREOP DIAGNOSIS: Nonunion femur fracture PLANNED PROCEDURE: Operation Date: 07/08/24 08:50 Proposed Procedures p Hardware Removal Femur(Left) - Jaylen Cochran DO
[2024-07-08] MEDS: ceFAZolin 2,000 mg SDV 2000 MG IVP (08:29)
[2024-07-08] MEDS: sodium chloride 0.9% 1,000 ML 30 ML IV (08:30)
[2024-07-08] MEDS: lidocaine-epi 1% 20 mL INJ 30 ML INJECTION (08:55)
--- NOTE | 2024-07-08 10:02 | PM.OP ---
Operative Report Date of procedure: July 08, 2024 Pre-op diagnosis: Left intertrochanteric femur nonunion Post-op diagnosis: same Procedure done: 1. Left distal locking screw removal (deep hardware removal distal femur) Surgeon: Jaylen Cochran DO Estimated blood loss (mL): 5 Procedure: 1. Left distal locking screw removal (deep hardware removal distal femur) Patient brought the op suite after Anesthesia patient was placed in supine position. All areas appear well-padded. Patient prepped. Was a fashion. Skin incision made over the 2 distal locking screws. Using C-arm guidance the screws were identified both screws were backed out. Wounds irrigated closed with Vicryl and latia. Sterile dressings applied patient transferred to the PACU in stable condition.
--- NOTE | 2024-07-08 10:05 | ANE.PACU2 ---
Inpatient post-anesthesia follow up: Airway intact: Yes Vital signs: Temperature 97.4 F Pulse Rate 83 Respiratory Rate 18 Blood Pressure 130/65 Pulse Oximetry 92 Oxygen Delivery Me thod Room Air Oxygen Flow Rate 8 Fraction of Inspir ed Oxygen Hydration adequate: Yes Nausea and vomiting: No Pain level: 1 Mental status: Baseline
--- NOTE | 2024-07-08 16:04 | XR_ITS ---
WS: [id number] Examination: XR femur LT 1V [id number] Reason for Exam: JAMIL PICS Date: July 08, 2024 Comparison: 06/16/2024 Findings: A single intraoperative image demonstrates intramedullary clau involving the left femur. The 2 lower f ixating screws have been removed. A single image was obtained with 6.7 seconds of fluoroscopy The dap is 0.46 mGy.
== END 2024-07-08 10:07 | disposition home or self-care (01) ==
PROVIDERS: PCP Family Medicine; Visit Provider Orthopaedic Surgery
PROC: (CPT 20680; principal; 2024-07-08 08:40)
DX: M96.0 Pseudarthrosis after fusion or arthrodesis (principal); I48.91 Unspecified atrial fibrillation; I25.10 Atherosclerotic heart disease of native coronary artery without angina pectoris; Z95.1 Presence of aortocoronary bypass graft; I10 Essential (primary) hypertension; E11.9 Type 2 diabetes mellitus without complications; Z79.01 Long term (current) use of anticoagulants
CPT/HCPCS: 20680; 73551; 76000; J0131; J0690; J1100; J2405; J2704; J3010; J7030

== ENCOUNTER → 2024-07-21 12:24 | Outpatient (BNVA) | payer OTHER, SELFPAY | PROVIDERS: PCP Family Medicine; Visit Provider Orthopaedic Surgery | DX: S72.145K Nondisplaced intertrochanteric fracture of left femur, subsequent encounter for closed fracture with nonunion (principal); X58.XXXD Exposure to other specified factors, subsequent encounter | CPT/HCPCS: 99024 ==